=== PATIENT | female | born 1995 | race Caucasian/White ===

== ENCOUNTER 2020-04-20 13:44 | Outpatient (REF) | payer OTHER, SELFPAY | END 2020-04-20 13:45 | disposition home or self-care (01) | LOC: HO.LAB 13:44 | PROVIDERS: Visit Provider Internal Medicine | DX: Z20.828 Contact with and (suspected) exposure to other viral communicable diseases (principal) | CPT/HCPCS: C9803; U0003 ==

== ENCOUNTER 2021-02-27 14:56 | Outpatient (REF) | payer OTHER, SELFPAY ==
--- NOTE | ~2021-02-27 | XR_ITS ---
EXAMINATION: XR HAND, LEFT CLINICAL INFORMATION: Pain COMPARISON: None TECHNIQUE: PA, lateral, and oblique views of the left hand. FINDINGS: The bones and soft tissues are normal. No fracture. Alignment is anatomic. Joint spaces are maintained. No erosions or soft tissue calcifications. XR/XR hand LT min 3V IMPRESSION: Normal left hand.
== END 2021-02-27 14:57 | disposition home or self-care (01) ==
LOC: HO.HMGCX 14:56
PROVIDERS: PCP Internal Medicine; Visit Provider Internal Medicine
DX: Z13.89 Encounter for screening for other disorder (principal)
CPT/HCPCS: 73130

== ENCOUNTER 2021-03-02 13:53 | Outpatient (REF) | payer OTHER, SELFPAY ==
[2021-03-02 14:42] LABS: Hematocrit 37.1 % (37-47); Hemoglobin 11.7 g/dl (12.0-16.0); Mean Corpuscular HGB Conc 31.5 g/dl (31.0-35.0); Mean Corpuscular Hemoglobin 25.3 pg (27.0-33.0); Mean Corpuscular Volume 80.1 fL (80-98); Mean Platelet Volume 10.2 fL (9.4-12.3); Platelet Count 300 X10*3/uL (160-400); Red Blood Count 4.63 X10*6/uL (4.20-5.50); Red Cell Distribution Width 14.2 % (11.0-16.0); White Blood Count 10.3 X10*3/uL (4.8-10.8)
[2021-03-02 15:04] LABS: Alanine Aminotransferase 22 U/L (0-31); Albumin Level 4.6 g/dL (3.5-5.0); Alkaline Phosphatase 61 U/L (39-117); Anion Gap 13 (12-20); Aspartate Amino Transferase 18 U/L (5-31); Bilirubin Total 0.3 mg/dL (0.0-1.0); Blood Urea Nitrogen 8 mg/dL (9-16); Calcium 9.6 mg/dL (8.4-10.2); Carbon Dioxide 25 mmol/L (22-29); Chloride 106 mmol/L (96-108); Cholesterol 154 mg/dL; Estimated Glomerular Filt Rate > 60; Glucose Fasting 75 mg/dL (60-99); HDL Cholesterol 48 mg/dL; Iron 53 mcg/dL (30-160); LDL Cholesterol Calculated 85 mg/dl; Percent Iron Saturation 11 % (15-50); Potassium 3.8 mmol/L (3.3-5.1); Sodium 140 mmol/L (135-145); Total Iron Binding Capacity 493 mcg/dL (228-428); Total Protein 7.6 g/dL (6.5-8.0); Triglycerides 109 mg/dL; Unsaturated Iron Binding 440 ug/dL
[2021-03-02 15:25] LABS: TSH reflex Free T4 1.09 uIU/mL (0.32-4.0)
[2021-03-02 15:38] LABS: Appearance Urine HAZY; Color Urine YELLOW; Glucose Urine UA NEG (NEG); Leukocyte Esterase Urine NEG (NEG); Nitrite Urine NEG (NEG); Specific Gravity - Urine >= 1.030 (1.005-1.025); Urine Blood 3+ (NEG); Urine Ketones NEG (NEG); Urine Protein TRACE MG/DL (NEG-TRACE)
[2021-03-02 16:55] LABS: Bacteria Urine 3+ /LPF; RBC Urine 50-75 /HPF (0); Squamous Epithelial Cell Urine 2+ /LPF
== END 2021-03-02 13:54 | disposition home or self-care (01) ==
LOC: HO.LAB 13:53
PROVIDERS: PCP Internal Medicine; Visit Provider Internal Medicine
DX: Z00.00 Encounter for general adult medical examination without abnormal findings (principal)
CPT/HCPCS: 36415; 80053; 80061; 81001; 83540; 84443; 85027

== ENCOUNTER 2021-03-06 15:11 | Outpatient (REF) | payer OTHER, SELFPAY ==
[2021-03-07 16:31] LABS: CT PCR NOT DETECTED (Not Detect.); NG PCR NOT DETECTED (Not Detect.)
[2021-03-08 09:44] LABS: BV Int Neg Control Negative (Negative); BV Int Pos Control Positive (Positive)
== END 2021-03-06 15:12 | disposition home or self-care (01) ==
LOC: HO.LAB 15:11
PROVIDERS: PCP Internal Medicine; Visit Provider Advanced Practice Midwife
DX: Z01.419 Encounter for gynecological examination (general) (routine) without abnormal findings (principal); Z11.3 Encounter for screening for infections with a predominantly sexual mode of transmission; Z20.2 Contact with and (suspected) exposure to infections with a predominantly sexual mode of transmission; E66.01 Morbid (severe) obesity due to excess calories; L65.9 Nonscarring hair loss, unspecified
CPT/HCPCS: 87480; 87491; 87510; 87591; 87660; 88142

== ENCOUNTER 2021-03-10 13:02 | Outpatient (REF) | payer OTHER, SELFPAY ==
--- NOTE | ~2021-03-10 | US_ITS ---
EXAMINATION: US PELVIS CLINICAL INFORMATION: Check IUD position. COMPARISON: Several priors. Most recent of 12/16/18. TECHNIQUE: Ultrasound of the pelvis is performed using both transabdominal and transvaginal transducers along with Doppler. Transvaginal imaging is performed due to inadequate visualization transabdominally. FINDINGS: Uterus: The uterus is anteverted and measures 7.4 x 4.3 x 5.5 cm. The IUD is present in expected position within the endometrial canal. There is no thickening of the endometrium. The uterus is smooth in contour and has normal myometrial echogenicity. No visible fibroid. Adnexa: Both ovaries are visualized. There is normal color flow to the adnexa. There is no ovarian torsion. There is no pelvic ascites or fluid collection. Right ovary measures 2.9 x 1.5 x 1.8 cm. Left ovary measures 3.5 x 2.2 x 2.0 cm. US/US pelvic and transvaginal IMPRESSION: IUD in expected position in the endometrial canal. Otherwise unremarkable examination.
== END 2021-03-10 13:03 | disposition home or self-care (01) ==
LOC: HO.HMGCX 13:02
PROVIDERS: PCP Internal Medicine; Visit Provider Advanced Practice Midwife
DX: Z30.431 Encounter for routine checking of intrauterine contraceptive device (principal)
CPT/HCPCS: 76830; 76856

== ENCOUNTER → 2021-03-15 14:02 | Outpatient (BNVA) | payer OTHER, SELFPAY | PROVIDERS: PCP Internal Medicine; Visit Provider Orthopaedic Surgery | DX: M79.645 Pain in left finger(s) (principal); M65.312 Trigger thumb, left thumb | CPT/HCPCS: 20550; 99202; J1100 ==

== ENCOUNTER → 2021-03-30 15:02 | Outpatient (BNVA) | payer OTHER, SELFPAY | PROVIDERS: Visit Provider Advanced Practice Midwife ==

== ENCOUNTER 2021-05-07 16:31 | Emergency (ER) | payer OTHER, SELFPAY ==
--- NOTE | ~2021-05-07 | CT_ITS ---
EXAMINATION: CT ABDOMEN AND PELVIS WITH CONTRAST CLINICAL INFORMATION: Periumbilical pain COMPARISON: 12/09/2011 report TECHNIQUE: Multidetector volumetric images were obtained from the superior aspect of the liver through the pubic symphysis following administration 85 mL of Omnipaque 350 intravenous contrast. Sagittal and coronal reformatted images were obtained on the technologist's workstation. Oral contrast: No This CT examination was performed using dose optimization techniques as appropriate, variously including the following: *Automated exposure control *Adjustment of mA and/or kV according to patient size (this includes techniques or standardized protocols for targeted exams where dose is matched to indication/reason for exam; i.e. extremities or head) *Use of iterative reconstruction technique DLP: 812 mGy-cm FINDINGS: LUNG BASES: The visualized lung bases are unremarkable. LIVER, GALLBLADDER, AND BILIARY TREE: The liver demonstrates diffuse hypoattenuation suspicious for steatosis. No focal hepatic lesion or biliary ductal dilatation is present. The gallbladder is unremarkable with no evidence of radiopaque gallstones, gallbladder wall thickening, or obvious pericholecystic inflammatory changes. PANCREAS: Unremarkable. SPLEEN: Unremarkable. ADRENAL GLANDS: Unremarkable. KIDNEYS AND URETERS: The kidneys are normal in size, shape, and attenuation. No hydronephrosis, hydroureter, or obstructing calculi seen. No perinephric stranding. Subcentimeter hypodensity in the lower left kidney statistically favors a cyst. BLADDER: Unremarkable. GASTROINTESTINAL TRACT: Assessment for wall thickening in some segments of the colon is limited due to luminal collapse, though no significant pericolonic stranding is seen to strongly suggest a colitis. No evidence of bowel obstruction. The appendix is unremarkable. No free fluid or free air is seen. ABDOMINAL WALL: No significant hernia is appreciated. LYMPH NODES: Normal. VASCULAR: Unremarkable. PELVIC VISCERA: IUD is present in the uterus. OSSEOUS STRUCTURES: Unremarkable. CT/CT abdomen pelvis w con IMPRESSION: No acute findings identified in the abdomen/pelvis. Suboptimal assessment of the colon due to luminal collapse. Fleischner guidelines were followed.
[2021-05-07 19:26] VITALS: BP 137/87; PULSE 73; RESP 20; TEMP 36.9; O2SAT 99; BMI 95.7
[2021-05-07 21:04] LABS: COVID-19 Test Negative (Negative)
--- NOTE | 2021-05-07 21:50 | ED_ITS ---
HPI - Nausea/Vomiting/Diarrhea General Chief complaint: Nausea/Vomiting/Diarrhea Stated complaint: vomiting Time Seen by Provider: 05/07/21 21:11 Source: patient Mode of arrival: ambulatory History of Present Illness HPI Narrative: 26-year-old female without significant past medical history other than 2 prior C-sections presents with nausea and vomiting that started last night after having eaten chicken tenders and then had a ?strong [place] drink for my birthday? and began experiencing nausea and vomiting and now has periumbilical abdominal discomfort and has had associated nonbloody diarrhea. Patient has continued to have nausea, vomiting, diarrhea throughout the day and has been unable to keep anything down. She otherwise denies any fever, chills, urinary symptoms and denies any history of renal colic. Patient is just now completing her menstrual cycle and endorses having an IUD in place. Related Data Home Medications Medication Instructions Recorded Confirmed ferrous sulfate 325 mg (65 mg 325 mg PO DAILY 02/27/21 02/27/21 iron) tablet copper 380 square mm intrauterine INTRAUTERINE 03/06/21 device (ParaGard T 380A) Previous Rx's Medication Instructions Recorded omeprazole 20 mg capsule,delayed 20 mg PO DAILY 42 Days #42 cap 02/27/21 release ciprofloxacin HCl 500 mg tablet 500 mg PO Q12H 7 Days #14 tab 05/08/21 (Cipro) ondansetron HCl 4 mg tablet 4 mg PO Q8H PRN #10 tab 05/08/21 (Zofran) Allergies Allergy/AdvReac Type Severity Reaction Status Date / Time seafood Allergy Severe Anaphylaxis Verified 05/07/21 19:26 Review of Systems Review of Systems: Pertinent positives and negatives as stated in HPI 10 point review of systems is otherwise negative. [facility] Past Medical History Source: nursing notes reviewed Medical History Annual physical exam GERD (gastroesophageal reflux disease) IUD check up Kidney stones Pain of left thumb Surgical History History of section History of dilatation and curettage Family History Family History Father Diabetes mellitus Mother Asthma History of blood clots Maternal Grandfather No problems noted. Maternal Grandmother Breast cancer Paternal Grandfather Diabetes mellitus Paternal Grandmother No problems noted. Brother No problems noted. Brother No problems noted. Brother No problems noted. Brother No problems noted. Sister No problems noted. Sister No problems noted. Sister No problems noted. Sister No problems noted. Sister No problems noted. Sister No problems noted. Son No problems noted. Social History Social History Housing: House Patient Tobacco Use Status: Never used Tobacco e-Cigarette/Vaping Use: Never Used Advance Directives: No Advance Directives Information Provided: No Patient : No Current occupational status: unemployed Physical Exam Vital Signs: Vital Signs: Last Vital Signs Temp 98.5 F 05/07/21 19:26 Pulse 73 05/07/21 19:26 Resp 20 05/07/21 19:26 BP 137/87 05/07/21 19:26 Pulse Ox 99 05/07/21 19:26 Body Mass Index 95.7 VITAL SIGNS: Reviewed. GENERAL: Well developed, well nourished, in no acute distress. HEAD: Normocephalic/atraumatic EYES: PERRLA, EOMI OROPHARYNX: no oral lesions noted, posterior pharynx clear NECK: Supple, no adenopathy LUNGS: Normal breath sounds. No adventitious sounds or accessory muscle use. SpO2<99> CARDIOVASCULAR: Regular rate and rhythm without noted murmurs ABDOMEN: Soft, tenderness in periumbilical and left lower quadrant without rebound, non-distended with bowel sounds. SKIN: Inspection of the skin reveals no rashes NEUROLOGIC: Alert and oriented x 4. Course Course Course Narrative: 26-year-old female with history and clinical presentation possible for pancreatitis, gastroenteritis, and less likely felt to be UTI/ectopic/renal colic. Review of all investigations without acute findings leukocytosis likely combination of UTI and stress response due to multiple episodes of nausea and vomiting. Review of all investigations consistent with pyelonephritis, patient received initial antibiotics here in the emergency room and was noted to be able to tolerate oral intake prior to discharge. She was informed of all results. MDM - Nausea/Vomiting/Diarrhea Lab Data Result diagrams: 05/07/21 22:59 05/07/21 22:59 Labs: Lab Results 05/07/21 05/07/21 05/07/21 Range/Units 20:45 21:46 21:46 WBC (4.8-10.8) X10*3/uL RBC (4.20-5.50) X10*6/uL Hgb (12.0-16.0) g/dl Hct (37.0-47.0) % MCV (80.0-98.0) fL MCH (27.0-33.0) pg MCHC (31.0-35.0) g/dl RDW (11.0-16.0) % Plt Count (160-400) X10*3/uL MPV (9.4-12.3) fL Immature Gran % (Auto) (0.0-0.4) % Neut % (Auto) (45-73) % Lymph % (Auto) (20-40) % [place] % (Auto) (2-11) % Eos % (Auto) (0-4) % Baso % (Auto) (0-2) % Lymph # (Auto) (1.2-4.9) X10*3/uL [place] # (Auto) (0.1-1.2) X10*3/uL Eos # (Auto) (0.0-0.4) X10*3/uL Baso # (Auto) (0.0-0.2) X10*3/uL Abs Immat Gran (auto) (0.00-0.03) X10*3/uL Absolute Neuts (auto) (2.0-8.3) x10*3/uL Absolute Nucleated RBC (0.0-0.012) X10*3/uL Nucleated RBC % (auto) (0.0-0.2) /100WBC Smear Tech's Comments Sodium (135-145) mmol/L Potassium (3.3-5.1) mmol/L Chloride (96-108) mmol/L Carbon Dioxide (22-29) mmol/L Anion Gap (12-20) BUN (9-16) mg/dL Creatinine (0.5-1.4) mg/dL Estim Creat Clear Calc Estimated GFR Random Glucose (60-115) mg/dL Calcium (8.4-10.2) mg/dL Total Bilirubin (0.0-1.0) mg/dL AST (5-31) U/L ALT (0-31) U/L Alkaline Phosphatase (39-117) U/L Total Protein (6.5-8.0) g/dL Albumin (3.5-5.0) g/dL Lipase (8-78) U/L Urine Color YELLOW Urine Appearance CLEAR Urine pH 6.5 (5.0-8.0) Ur Specific [place] 1.025 (1.005-1.025) Urine Protein 2+ H (NEG-TRACE) MG/DL Urine Glucose (UA) NEG (NEG) MG/DL Urine Ketones 40 (NEG) MG/DL Urine Blood 1+ H (NEG) Urine Nitrite POS H (NEG) Ur Leukocyte Esterase NEG (NEG) Urine RBC 5-9 H (0) /HPF Urine WBC 1-4 (0-4) /HPF Ur Squamous Epith Cells 1+ /LPF Urine Bacteria 3+ /LPF Urine Test NEGATIVE (NEGATIVE) COVID-19 ([facility]) Negative (Negative) COVID-19 Clin Com See Note 05/07/21 05/07/21 Range/Units 22:59 22:59 WBC 15.6 H (4.8-10.8) X10*3/uL RBC 4.74 (4.20-5.50) X10*6/uL Hgb 12.1 (12.0-16.0) g/dl Hct 37.2 (37.0-47.0) % MCV 78.5 L (80.0-98.0) fL MCH 25.5 L (27.0-33.0) pg MCHC 32.5 (31.0-35.0) g/dl RDW 14.6 (11.0-16.0) % Plt Count 301 (160-400) X10*3/uL MPV 10.0 (9.4-12.3) fL Immature Gran % (Auto) 0.4 (0.0-0.4) % Neut % (Auto) 91.4 H (45-73) % Lymph % (Auto) 5.5 L (20-40) % [place] % (Auto) 2.6 (2-11) % Eos % (Auto) 0.0 (0-4) % Baso % (Auto) 0.1 (0-2) % Lymph # (Auto) 0.9 L (1.2-4.9) X10*3/uL [place] # (Auto) 0.4 (0.1-1.2) X10*3/uL Eos # (Auto) 0.0 (0.0-0.4) X10*3/uL Baso # (Auto) 0.0 (0.0-0.2) X10*3/uL Abs Immat Gran (auto) 0.07 H (0.00-0.03) X10*3/uL Absolute Neuts (auto) 14.2 H (2.0-8.3) x10*3/uL Absolute Nucleated RBC 0.000 (0.0-0.012) X10*3/uL Nucleated RBC % (auto) 0.0 (0.0-0.2) /100WBC Smear Tech's Comments VERIFIED Sodium 140 (135-145) mmol/L Potassium 4.0 (3.3-5.1) mmol/L Chloride 104 (96-108) mmol/L Carbon Dioxide 19 L (22-29) mmol/L Anion Gap 21 H (12-20) BUN 11 (9-16) mg/dL Creatinine 0.72 (0.5-1.4) mg/dL Estim Creat Clear Calc 223.6 Estimated GFR > 60 Random Glucose 113 (60-115) mg/dL Calcium 10.0 (8.4-10.2) mg/dL Total Bilirubin 0.4 (0.0-1.0) mg/dL AST 25 (5-31) U/L ALT 31 (0-31) U/L Alkaline Phosphatase 59 (39-117) U/L Total Protein 8.4 H (6.5-8.0) g/dL Albumin 4.8 (3.5-5.0) g/dL Lipase 8 (8-78) U/L Urine Color Urine Appearance Urine pH (5.0-8.0) Ur Specific [place] (1.005-1.025) Urine Protein (NEG-TRACE) MG/DL Urine Glucose (UA) (NEG) MG/DL Urine Ketones (NEG) MG/DL Urine Blood (NEG) Urine Nitrite (NEG) Ur Leukocyte Esterase (NEG) Urine RBC (0) /HPF Urine WBC (0-4) /HPF Ur Squamous Epith Cells /LPF Urine Bacteria /LPF Urine Test (NEGATIVE) COVID-19 ([facility]) (Negative) COVID-19 Clin Com Discharge Plan Discharge Clinical Impression: Pyelonephritis, Gastroenteritis Patient Disposition: Home, Self-Care Instructions: Dehydration (ED), Gastroenteritis (ED), Kidney Infection (ED) Additional Instructions: 1. Increase fluid hydration, especially with water. 2. Complete the entire course of antibiotics. 3. Follow-up with your primary care provider next 2-3 days for re-evaluation further outpatient management. Return to the ER for acute worsening of symptoms. Prescriptions: New ciprofloxacin HCl [Cipro] 500 mg tablet 500 mg PO Q12H 7 Days Qty: 14 RF: 0 ondansetron HCl [Zofran] 4 mg tablet 4 mg PO Q8H PRN (Reason: nausea and vomiting) Qty: 10 RF: 0 No Action ferrous sulfate 325 mg (65 mg iron) tablet 325 mg PO DAILY RF: 0 omeprazole 20 mg capsule,delayed release(DR/EC) 20 mg PO DAILY 42 Days Qty: 42 RF: 0 ParaGard T 380A 380 square mm intrauterine device intrauterine RF: 0 Referrals: Radha Dobbs MD [Primary Care Provider] - 2 days
[2021-05-07 22:10] LABS: Appearance Urine CLEAR; Color Urine YELLOW; Glucose Urine UA NEG (NEG); Leukocyte Esterase Urine NEG (NEG); Nitrite Urine POS (NEG); PH 6.5 (5.0-8.0); Specific Gravity - Urine 1.025 (1.005-1.025); UACC Culture Trigger YES; Urine Blood 1+ (NEG); Urine Ketones 40 MG/DL (NEG); Urine Protein 2+ MG/DL (NEG-TRACE)
[2021-05-07 22:16] LABS: UPreg QC Valid YES; Urine Pregnancy NEGATIVE (NEGATIVE)
[2021-05-07 22:37] LABS: Bacteria Urine 3+ /LPF; Squamous Epithelial Cell Urine 1+ /LPF
[2021-05-07 23:04] LABS: Basophils Percent Auto 0.1 % (0-2); Hematocrit 37.2 % (37.0-47.0); Hemoglobin 12.1 g/dl (12.0-16.0); Imm Gran Abs Auto 0.07 X10*3/uL (0.00-0.03); Imm Gran Pct Auto 0.4 % (0.0-0.4); Lymphocytes Absolute Auto 0.9 X10*3/uL (1.2-4.9); Lymphocytes Percent Auto 5.5 % (20-40); MANUAL DIFF FLAG SCAN; Mean Corpuscular HGB Conc 32.5 g/dl (31.0-35.0); Mean Corpuscular Hemoglobin 25.5 pg (27.0-33.0); Mean Corpuscular Volume 78.5 fL (80.0-98.0); Monocytes Absolute Auto 0.4 X10*3/uL (0.1-1.2); Monocytes Percent Auto 2.6 % (2-11); Neutrophils Absolute Auto 14.2 x10*3/uL (2.0-8.3); Neutrophils Percent Auto 91.4 % (45-73); Platelet Count 301 X10*3/uL (160-400); Red Blood Count 4.74 X10*6/uL (4.20-5.50); Red Cell Distribution Width 14.6 % (11.0-16.0); SCAN SMEAR FLAG 1; White Blood Count 15.6 X10*3/uL (4.8-10.8)
[2021-05-07] MEDS: ondansetron HCL 4 MG/2 ML VIAL IVPUSH (23:12)
[2021-05-07] MEDS: 0.9 % Sodium Chloride 2,000 ML 999 ML IV (23:13)
[2021-05-07 23:21] LABS: Alanine Aminotransferase 31 U/L (0-31); Albumin Level 4.8 g/dL (3.5-5.0); Alkaline Phosphatase 59 U/L (39-117); Anion Gap 21 (12-20); Aspartate Amino Transferase 25 U/L (5-31); Bilirubin Total 0.4 mg/dL (0.0-1.0); Blood Urea Nitrogen 11 mg/dL (9-16); Carbon Dioxide 19 mmol/L (22-29); Chloride 104 mmol/L (96-108); Creatinine Clr Calc Pharmacy 223.6; Estimated Glomerular Filt Rate > 60; Glucose Random 113 mg/dL (60-115); Lipase 8 U/L (8-78); Sodium 140 mmol/L (135-145); Total Protein 8.4 g/dL (6.5-8.0)
[2021-05-07 23:31] LABS: SLIDE REVIEW VERIFIED
[2021-05-08] MEDS: cefTRIAXone sodium 1 GM in 0.9 % Sodium Chloride 50 ML IV (00:09)
[2021-05-08] MEDS: iohexoL 350 MG/ML 100 ML INFUS..BTL 85 ML IV (01:20)
[2021-05-08 02:53] VITALS: BP 124/84; PULSE 76; RESP 18; TEMP 37; O2SAT 98
== END 2021-05-08 02:54 | disposition home or self-care (01) ==
PROVIDERS: Emergency Provider Student in an Organized Health Care Education/Training Program; PCP Internal Medicine
DX: N12 Tubulo-interstitial nephritis, not specified as acute or chronic (principal); K52.9 Noninfective gastroenteritis and colitis, unspecified; Z20.822 Contact with and (suspected) exposure to COVID-19; R11.2 Nausea with vomiting, unspecified
CPT/HCPCS: 36415; 74177; 80053; 81001; 81003; 81025; 83690; 85025; 87086; 87088; 87186; 87635; 96361; 96365; 96375; 99284; J0696; J2405; Q9967

== ENCOUNTER 2022-04-11 11:53 | Outpatient (REF) | payer OTHER, SELFPAY ==
[2022-04-11 12:20] LABS: Binax Internal Control QC Valid; Binax Now Covid-19 Ag Negative (Negative)
== END 2022-04-11 11:54 | disposition home or self-care (01) ==
LOC: HO.HMGCLDS 11:53
PROVIDERS: PCP Internal Medicine; Visit Provider Internal Medicine
DX: Z20.822 Contact with and (suspected) exposure to COVID-19 (principal)
CPT/HCPCS: 87811; C9803

== ENCOUNTER 2022-05-14 10:01 | Outpatient (REF) | payer OTHER, SELFPAY ==
[2022-05-14 14:16] LABS: CT PCR NOT DETECTED (Not Detect.); NG PCR NOT DETECTED (Not Detect.)
[2022-05-15 09:27] LABS: BV Int Neg Control Negative (Negative); BV Int Pos Control Positive (Positive)
== END 2022-05-14 10:02 | disposition home or self-care (01) ==
LOC: HO.LNP 10:01
PROVIDERS: PCP Internal Medicine; Visit Provider Advanced Practice Midwife
DX: Z30.431 Encounter for routine checking of intrauterine contraceptive device (principal); Z32.02 Encounter for pregnancy test, result negative; Z20.2 Contact with and (suspected) exposure to infections with a predominantly sexual mode of transmission; R10.2 Pelvic and perineal pain; L65.9 Nonscarring hair loss, unspecified; N92.4 Excessive bleeding in the premenopausal period; E66.9 Obesity, unspecified
CPT/HCPCS: 76830; 76856; 81025; 87480; 87491; 87510; 87591; 87660; 99212

== ENCOUNTER 2022-05-14 11:30 | Outpatient (REF) | payer OTHER, SELFPAY ==
--- NOTE | ~2022-05-14 | US_ITS ---
EXAMINATION: US PELVIS CLINICAL INFORMATION: IUD. COMPARISON: None TECHNIQUE: Ultrasound of the pelvis is performed using both transabdominal and transvaginal transducers along with Doppler. Transvaginal imaging is performed due to inadequate visualization transabdominally. FINDINGS: Uterus: The uterus is anteverted and measures 9.2 x 4.4 x 5.3 cm. No myometrial abnormality. An IUD is seen within the endometrial canal extending to the level the fundus without surrounding abnormality. This obscures a majority of the endometrium without overt abnormality. The cervix is closed without abnormality. Mild free fluid in the cul-de-sac. Right ovary measures 3.5 x 2.2 x 2.2 cm. Doppler showed no abnormal vascular flow. Left ovary measures 2.9 x 1.9 x 1.7 cm. Doppler showed no abnormal vascular flow. US/US pelvic and transvaginal IMPRESSION: 1. IUD appears in good position without significant abnormality or change. No other significant abnormality.
== END 2022-05-14 11:31 | disposition home or self-care (01) ==
LOC: HO.US 11:30
PROVIDERS: PCP Internal Medicine; Visit Provider Advanced Practice Midwife
DX: Z13.89 Encounter for screening for other disorder (principal)
CPT/HCPCS: 76830; 76856

== ENCOUNTER → 2022-05-21 11:39 | Outpatient (BNVA) | payer OTHER, SELFPAY | PROVIDERS: PCP Internal Medicine; Visit Provider Advanced Practice Midwife | DX: R10.2 Pelvic and perineal pain (principal); R19.8 Other specified symptoms and signs involving the digestive system and abdomen; E66.01 Morbid (severe) obesity due to excess calories; Z68.41 Body mass index [BMI] 40.0-44.9, adult; Z87.42 Personal history of other diseases of the female genital tract; Z97.5 Presence of (intrauterine) contraceptive device | CPT/HCPCS: 99212 ==

== ENCOUNTER 2022-08-06 11:19 | Outpatient (REF) | payer OTHER, SELFPAY ==
[2022-08-06 12:10] LABS: MANUAL DIFF FLAG NO
[2022-08-06 12:53] LABS: Basophils Percent Auto 0.5 % (0-2); Eosinophils Absolute Auto 0.1 X10*3/uL (0.0-0.4); Eosinophils Percent Auto 1.4 % (0-4); Hematocrit 38.1 % (37.0-47.0); Hemoglobin 12.3 g/dl (12.0-16.0); Imm Gran Abs Auto 0.04 X10*3/uL (0.00-0.03); Imm Gran Pct Auto 0.5 % (0.0-0.4); Lymphocytes Absolute Auto 2.3 X10*3/uL (1.2-4.9); Lymphocytes Percent Auto 26.9 % (20-40); Mean Corpuscular HGB Conc 32.3 g/dl (31.0-35.0); Mean Corpuscular Hemoglobin 26.2 pg (27.0-33.0); Mean Corpuscular Volume 81.1 fL (80.0-98.0); Mean Platelet Volume 10.9 fL (9.4-12.3); Monocytes Absolute Auto 0.5 X10*3/uL (0.1-1.2); Monocytes Percent Auto 5.5 % (2-11); Neutrophils Absolute Auto 5.5 x10*3/uL (2.0-8.3); Neutrophils Percent Auto 65.2 % (45-73); Platelet Count 286 X10*3/uL (160-400); Red Cell Distribution Width 14.4 % (11.0-16.0); White Blood Count 8.4 X10*3/uL (4.8-10.8)
[2022-08-06 13:26] LABS: Alanine Aminotransferase 21 U/L (0-31); Albumin Level 4.6 g/dL (3.5-5.0); Alkaline Phosphatase 54 U/L (39-117); Anion Gap 14 (12-20); Aspartate Amino Transferase 17 U/L (5-31); Bilirubin Total 0.4 mg/dL (0.0-1.0); Blood Urea Nitrogen 10 mg/dL (9-16); Calcium 9.9 mg/dL (8.4-10.2); Carbon Dioxide 27 mmol/L (22-29); Chloride 104 mmol/L (96-108); Estimated Glomerular Filt Rate > 60; Glucose Random 81 mg/dL (60-115); Potassium 4.7 mmol/L (3.3-5.1); Sodium 140 mmol/L (135-145); Total Protein 7.6 g/dL (6.5-8.0)
[2022-08-06 13:49] LABS: Thyroid Stimulating Hormone 0.48 uIU/mL (0.32-4.0); Vitamin B12 258 pg/mL (200-900)
== END 2022-08-06 11:20 | disposition home or self-care (01) ==
LOC: HO.LAB 11:19
PROVIDERS: PCP Internal Medicine; Visit Provider Physician Assistant
DX: R19.8 Other specified symptoms and signs involving the digestive system and abdomen (principal); K59.09 Other constipation; K58.1 Irritable bowel syndrome with constipation; Z79.899 Other long term (current) drug therapy
CPT/HCPCS: 36415; 80053; 82607; 82746; 84443; 85025; 99202

== ENCOUNTER 2023-04-24 12:52 | Outpatient (AMB) | payer OTHER, SELFPAY ==
--- NOTE | 2023-04-24 12:55 | A.OFFPC_ITS ---
Vital Signs 04/24/23 12:57 Height 5 ft 1 in Weight 216 lb BMI 40.8 BP 120/70 Blood Pressure Location Rt brachial Position Sitting Pulse 80 Pulse Source Pulse Oximeter Pulse Oximetry (%) 98 Oxygen Delivery Method Room Air Intake Visit Reasons: Recurring cough, blood in phlegm, work note Intake Note: Patient here for vomiting, cough, sore throat, diarrhea, headaches and has had fevers since Saturday. pt states she was fine on Saturday all day and then fell asleep and woke up vomiting. Allergies seafood Allergy (Severe, Verified 04/24/23 13:00) Anaphylaxis nitrofurantoin Adverse Reaction (Intermediate, Verified 04/24/23 13:00) Nausea and Vomiting Tobacco use date assessed: 04/24/23 Dental Screening Dental Screen Date: 04/24/23 HPI Recurring cough, blood in phlegm, work note HPI Details Pt c/o sore throat, dry cough, fever, diarrhea, body aches for 4 days. She has been able to keep fluids and taking [id number] cold medications [facility] Medical History Diarrhea GERD (gastroesophageal reflux disease) IUD check up Pain of left thumb Annual physical exam Kidney stones Surgical History History of dilatation and curettage History of section Family History Father Diabetes mellitus Mother Asthma History of blood clots Mental health disorder Maternal Grandfather No problems noted. Maternal Grandmother Breast cancer Mental health disorder Paternal Grandfather Diabetes mellitus Paternal Grandmother No problems noted. Brother No problems noted. Brother No problems noted. Brother No problems noted. Brother No problems noted. Sister No problems noted. Sister No problems noted. Sister No problems noted. Sister No problems noted. Sister No problems noted. Sister No problems noted. Son No problems noted. Social History Housing: House Patient Tobacco Use Status: Never used Tobacco e-Cigarette/Vaping Use: Never Used Current occupational status: unemployed Cognitive needs: No Hearing needs: No Vision needs: Yes Female Reproductive History Menstrual Age of Menarche: 8 Questionnaire Thrive Questionnaire Date Thrive assessed: 02/27/21 MICHAEL-7 AMB Questionnaire MICHAEL-7 Date MICHAEL - 7 assessed: 05/30/21 Source: Developed by Drs. Emigdio Traylor, Briana Campos, Kwan Flood and colleagues, with an educational butch from [employer]. Review of Systems Const All systems reviewed & are unremarkable except as noted in HPI and below Eyes Reports no additional complaints ENT Reports no additional complaints Card Reports no additional complaints Resp Reports no additional complaints GI Reports no additional complaints Physical exam (Primary Care) Vital Signs: Last Vital Signs Pulse 80 04/24/23 12:57 BP 120/70 04/24/23 12:57 Pulse Ox 98 04/24/23 12:57 Oxygen Delivery Method Room Air 04/24/23 12:57 BMI result Body Mass Index 40.8 Tobacco/Smoking Status: Tobacco use Status Tobacco use date assessed 04/24/23 04/24/23 13:03 Patient Tobacco Use Status Never used Tobacco 04/24/23 13:03 e-Cigarette/Vaping Use Never Used 04/24/23 13:03 Thrive Assessment: Date of Thrive Assessment Date Thrive assessed 02/27/21 04/24/23 13:03 Const General: no acute distress HENMT Ears: TM's normal bilaterally General nose exam: Abnormal mucous membranes and turbinates present erythematous Face and sinus: Yes sinuses nontender Throat: Yes posterior oropharynx abnormal (erythema, ) and Yes postnasal drainag e Eyes General: appearance normal, both eyes and all related structures Neck Neck: Yes supple Resp Effort & Inspection: normal respiratory effort Auscultation: clear to auscultation bilaterally Cardio Rhythm: regular rhythm Heart sounds: S1 normal heart sound present and S2 normal heart sound present GI Inspection: Yes normal to inspection Palpation (GI): Soft to palpation Auscultation: normal bowel sounds Results AMB Rapid Strep AMB Rapid Strep Negative Last Edit by RYAN Roach on 04/24/23 13:55 Results Reviewed Results Reviewed: Laboratory Last Values Strep Scn Rapid Clinic Negative 04/24/23 13:53 Assessment and Plan Assessment & Plan (1) Upper respiratory tract infection: Code(s): J06.9 - Acute upper respiratory infection, unspecified Plan: SUPPORTIVE CARE DISCUSSED WITH THE PATIENT Orders: Orders AMB Rapid Strep Screen Today Z13.9 - Encounter for screening, unspecified SARS-CoV2/FLU/RSV Today R09.89 - Other specified symptoms and signs involving the circulatory and respiratory systems Coding Level of Care Code Est Pt Level 3 (09766) Diagnoses Upper respiratory tract infection J06.9
[2023-04-24 12:57] VITALS: BP 120/70; PULSE 80; O2SAT 98; BMI 40.8
== END 2023-04-24 14:22 | disposition home or self-care (01) ==
LOC: HO.HMGC 12:52
PROVIDERS: PCP Internal Medicine; Visit Provider Internal Medicine
DX: J06.9 Acute upper respiratory infection, unspecified (principal); J02.9 Acute pharyngitis, unspecified
CPT/HCPCS: 87880; 99213

== ENCOUNTER 2023-04-24 13:53 | Outpatient (REF) | payer OTHER, SELFPAY ==
[2023-04-24 17:14] LABS: Influenza A PCR NEGATIVE (Negative); Influenza B PCR NEGATIVE (Negative); Resp Syncy Virus RNA Qual PCR NEGATIVE (Negative); SARS COV2 PCR INHOUSE POSITIVE (Negative)
== END 2023-04-24 13:54 | disposition home or self-care (01) ==
LOC: HO.LNP 13:53
PROVIDERS: Visit Provider Internal Medicine
DX: R09.89 Other specified symptoms and signs involving the circulatory and respiratory systems (principal); Z11.52 Encounter for screening for COVID-19
CPT/HCPCS: 0241U

== ENCOUNTER 2023-05-15 13:42 | Outpatient (AMB) | payer OTHER, SELFPAY ==
[2023-05-15 14:03] VITALS: BP 110/68; BMI 41.9
--- NOTE | 2023-05-15 14:03 | MHC.OFFVIS ---
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: No Information Interpreted: clinical only Waxer: Waxer Present Allergies seafood Allergy (Severe, Verified 05/15/23 14:04) Anaphylaxis nitrofurantoin Adverse Reaction (Intermediate, Verified 05/15/23 14:04) Nausea and Vomiting Medication List - Last Reconciled 05/15/23 by Lin Siegel CNM bisacodyl (Dulcolax (bisacodyl)) 10 mg DE DAILY PRN copper (ParaGard T 380A) intrauterine docusate sodium (Colace) 200 mg (2 x 100 mg) PO BEDTIME epinephrine 0.3 mg IM Q4H PRN ibuprofen 800 mg PO TID methylcellulose (laxative) (Citrucel) 500 mg PO TID ondansetron HCl (Zofran) 4 mg PO Q8H PRN polyethylene glycol 3350 (Miralax) 17 grams PO DAILY Is last menstrual period known: Yes Last menstrual period: 05/15/23 Patient : No HPI IUD Removal HPI Details Patient states she is here for a ParaGard removal and replacement. She has had the ParaGard because she was advised to not have have anything with any hormones and it because she was having alopecia and she was told to avoid hormones. Her periods have gotten heavier and they are so heavy that if she has her. Heavy and needs to cough or sneeze, she runs to the bathroom and frayed that she is going to leak. She says she is anemic and takes iron twice a day. She says she was referred to dermatology for the alopecia but she does not remember what kind she has and she was given a paced that she mixes up that she was paste to put on her scalp but it did not do anything but she does not know what it is. She says she called last month and was told to call back when she had her. So she could come in and get it replaced but there was no discussion about signing paperwork had of time to order the ParaGard. [facility] Medical History Diarrhea GERD (gastroesophageal reflux disease) IUD check up Pain of left thumb Annual physical exam Kidney stones Surgical History History of dilatation and curettage History of section Family History Father Diabetes mellitus Mother Asthma History of blood clots Mental health disorder Maternal Grandfather No problems noted. Maternal Grandmother Breast cancer Mental health disorder Paternal Grandfather Diabetes mellitus Paternal Grandmother No problems noted. Brother No problems noted. Brother No problems noted. Brother No problems noted. Brother No problems noted. Sister No problems noted. Sister No problems noted. Sister No problems noted. Sister No problems noted. Sister No problems noted. Sister No problems noted. Son No problems noted. Social History Housing: House Patient Tobacco Use Status: Never used Tobacco e-Cigarette/Vaping Use: Never Used Current occupational status: unemployed Cognitive needs: No Hearing needs: No Vision needs: Yes Female Reproductive History Menstrual Age of Menarche: 8 Date of last menstrual period: 05/15/23 control method: copper IUCD Physical Exam Vital Signs: Last Vital Signs BP 110/68 05/15/23 14:03 BMI result Body Mass Index 41.9 Results AMB Test Urine AMB Test Urine Negative Last Edit by Jaswinder Burden CMA on 05/15/23 14:11 Assessment & Plan Assessment & Plan (1) Alopecia: Code(s): L65.9 - Nonscarring hair loss, unspecified (2) IUD (intrauterine device) in place: Code(s): Z97.5 - Presence of (intrauterine) contraceptive device (3) control counseling: Code(s): Z30.09 - Encounter for other general counseling and advice on contraception (4) Menorrhagia due to intrauterine device (IUD): Code(s): T83.89XA - Other specified complication of genitourinary prosthetic devices, implants and grafts, initial encounter; N92.0 - Excessive and frequent menstruation with regular cycle Plan Patient states she is here for a ParaGard removal and replacement. She has had the ParaGard because she was advised to not have have anything with any hormones and it because she was having alopecia and she was told to avoid hormones. Her periods have gotten heavier and they are so heavy that if she has her. Heavy and needs to cough or sneeze, she runs to the bathroom and frayed that she is going to leak. She says she is anemic and takes iron twice a day. She says she was referred to dermatology for the alopecia but she does not remember what kind she has and she was given a paced that she mixes up that she was paste to put on her scalp but it did not do anything but she does not know what it is. She says she called last month and was told to call back when she had her. So she could come in and get it replaced but there was no discussion about signing paperwork had of time to order the ParaGard. Discussed that it was unclear how this appointment got made in her however this provides an opportunity to revisit her decision to use the ParaGard IUD because she is having such heavy periods and says she is anemic and is tired all the time and needs to take iron twice a day that this might be a very good opportunity to reconsider and consider a Mirena IUD which may help lighten her periods she is still on easy about the idea of hormones and I discussed side effects of the Mirena and also alopecia and that it would be good for her to find out exactly what kind she has and that it also would be good to check her thyroid gland as well. She has an appointment with Dr. Dobbs this Saturday and she says she would like to discuss it with her at that visit and she will make her decision after that if she wants to switch to the Mirena IU S then she could call with her next period and we will take out the ParaGard and put in a Mirena IU S which we stock in the pharmacy and it would be able to be done in that way if she decides to stick with the ParaGard after discussing this with her primary doctor then she would have to sign paperwork ahead of time so that it can be ordered. I gave her a brochure about the Mirena. Orders: Orders AMB HCG Urine Test Today Z32.02 - Encounter for test, result negative Coding Level of Care Code Est Pt Level 3 (55114) Diagnoses Alopecia L65.9 IUD (intrauterine device) in place Z97.5 control counseling Z30.09 Menorrhagia due to intrauterine device (IUD) T83.89XA; N92.0
== END 2023-05-15 14:34 | disposition home or self-care (01) ==
LOC: HO.HWS 13:42
PROVIDERS: PCP Internal Medicine; Visit Provider Advanced Practice Midwife
DX: T83.89XA Other specified complication of genitourinary prosthetic devices, implants and grafts, initial encounter (principal); N92.0 Excessive and frequent menstruation with regular cycle; L65.9 Nonscarring hair loss, unspecified; Z32.02 Encounter for pregnancy test, result negative
CPT/HCPCS: 99213

== ENCOUNTER → 2023-05-15 13:42 | Outpatient (BNVA) | payer OTHER, SELFPAY | PROVIDERS: PCP Internal Medicine; Visit Provider Advanced Practice Midwife | DX: T83.89XA Other specified complication of genitourinary prosthetic devices, implants and grafts, initial encounter (principal); N92.0 Excessive and frequent menstruation with regular cycle; L65.9 Nonscarring hair loss, unspecified; Z30.09 Encounter for other general counseling and advice on contraception; Z97.5 Presence of (intrauterine) contraceptive device | CPT/HCPCS: 81025; 99212 ==

== ENCOUNTER 2023-09-14 14:16 | Emergency (ER) | payer OTHER, SELFPAY ==
--- NOTE | ~2023-09-14 | XR_ITS ---
EXAMINATION: XR FINGER, RIGHT CLINICAL INFORMATION: Trauma to the distal right third finger. Sliced tip of the right third finger. COMPARISON: None available. TECHNIQUE: PA view of the right hand and oblique and lateral views of the right hand third finger are obtained. FINDINGS: There is no evidence of acute fracture or dislocation in the right hand third finger. Soft tissue injury at the distal end of the third finger is noted without evidence of radiopaque foreign body or obvious soft tissue air. A metallic ring is noted projecting over the third proximal phalanx. Remainder of the osseous structures are unremarkable without evidence of acute fracture or focal erosion. XR/XR finger RT min 2V IMPRESSION: No evidence of acute fracture or dislocation in the right hand third finger. No evidence of soft tissue air or radiopaque foreign body.
[2023-09-14 14:47] VITALS: BP 147/94; PULSE 88; RESP 20; TEMP 36.2; O2SAT 100; BMI 40.4
--- NOTE | 2023-09-14 14:47 | ED_ITS ---
HPI - Extremity Injury (Upper) General Chief Complaint: Wound/Laceration Stated Complaint: Finger injury Time Seen by Provider: 09/14/23 16:34 Source: patient Mode of arrival: ambulatory Limitations: no limitations History of Present Illness HPI narrative: 28-year-old female presents with laceration to the distal aspect of right middle finger, patient cut herself on a cheese Grater this happened prior to arrival. Patient is not up-to-date on tetanus shot. Denies numbness, tingling, fevers, chills. Related Data Home Medications ?Medication ?Instructions ?Recorded ?Confirmed copper 380 square mm intrauterine intrauterine 03/06/21 05/15/23 device (ParaGard T 380A) ibuprofen 800 mg tablet 800 mg PO TID 05/30/21 05/15/23 epinephrine 0.3 mg/0.3 mL 0.3 mg IM Q4H PRN 04/24/23 05/15/23 injection, auto-injector Previous Rx's ?Medication ?Instructions ?Recorded ondansetron HCl 4 mg tablet 4 mg PO Q8H PRN nausea and 05/08/21 (Zofran) vomiting #10 tabs bisacodyl 10 mg rectal suppository 10 mg MO DAILY PRN constipation 08/06/22 (Dulcolax (bisacodyl)) #20 ea docusate sodium 100 mg capsule 200 mg (2 x 100 mg) PO BEDTIME #60 08/06/22 (Colace) caps methylcellulose (laxative) 500 mg 500 mg PO TID #90 tabs 08/06/22 tablet (Citrucel) polyethylene glycol 3350 17 17 g PO DAILY #510 grams 08/06/22 gram/dose oral powder (Miralax) Allergies Allergy/AdvReac Type Severity Reaction Status Date / Time seafood Allergy Severe Anaphylaxis Verified 09/14/23 14:48 nitrofurantoin AdvReac Intermediate Nausea and Verified 09/14/23 14:48 Vomiting Review of Systems Review of Systems: Yes all other systems are reviewed and are negative PMFSH Past Medical History Attestation statement: The following information was validated with the patient. Source: old records reviewed and nursing notes reviewed Medical History Diarrhea GERD (gastroesophageal reflux disease) IUD check up Pain of left thumb Annual physical exam Kidney stones Surgical History History of dilatation and curettage History of section Family History Family History Father Diabetes mellitus Mother Asthma History of blood clots Mental health disorder Maternal Grandfather No problems noted. Maternal Grandmother Breast cancer Mental health disorder Paternal Grandfather Diabetes mellitus Paternal Grandmother No problems noted. Brother No problems noted. Brother No problems noted. Brother No problems noted. Brother No problems noted. Sister No problems noted. Sister No problems noted. Sister No problems noted. Sister No problems noted. Sister No problems noted. Sister No problems noted. Son No problems noted. Social History Social History Housing: House Patient Tobacco Use Status: Never used Tobacco e-Cigarette/Vaping Use: Never Used Advance Directives: No Advance Directives Information Provided: Yes Current occupational status: unemployed Cognitive needs: No Hearing needs: No Vision needs: Yes Physical Exam Vital Signs: Vital Signs: Last Vital Signs Temp 97.1 F 09/14/23 14:47 Pulse 88 09/14/23 14:47 Resp 20 09/14/23 14:47 BP 147/94 H 09/14/23 14:47 Pulse Ox 100 09/14/23 14:47 O2 Del Method Room Air 09/14/23 14:47 BMI result Body Mass Index 40.4 vss Appearance: Alert.? Oriented X3.? No acute distress.? Head: Normocephalic, atraumatic, no step-offs or deformities Eyes: Pupils equal, round and reactive to light.? ENT: Pharynx normal.? Neck: Normal inspection.? Neck supple.? CVS:? Pulses normal.? Respiratory: No respiratory distress. Abdomen: Soft and nontender.? Skin: Skin warm and dry.? Normal skin color.? Normal skin turgor.? Extremities: No lower extremity edema.? No calf ttp. 5/5 strength to bilateral upper and lower extremities + laceration to the distal aspect of right middle finger fat pad 1 cm superficial. 2+ radial pulses. Full range of motion to all fingers. Less than 2nd capillary refill to bilateral upper extremity digits. Neuro: Oriented X 3.? No motor deficit.? No sensory deficit. CN 2-12 intact Course Course Course Narrative: 28 y/o female presents for lacteratoin to L 3rd digit at 11:35am with modeling and simulation analyst. She says that the senior officer who wrapped the finger says it was under the finger nail, unknown if to the bone. No recent tetanus in 5 years. smt technician was dirty. Finger is currently wrapped with bleeding controlled, will wait until seen to evaluated if stitches are needed. Plan: finger x ray, tetanus Medical Decision Making Medical Decision Making MDM Narrative: 28-year-old female presents with laceration to right middle finger, happened prior to arrival Physical exam No lower extremity edema.? No calf ttp. 5/5 strength to bilateral upper and lower extremities + laceration to the distal aspect of right middle finger fat pad 1 cm superficial. 2+ radial pulses. Full range of motion to all fingers. Less than 2nd capillary refill to bilateral upper extremity digits. History and physical exam concerning for simple laceration. Unlikely fracture, dislocation, neurovascular compromise or acute threat to limb. Plan cleaned extensivly and Dermabond. Educated patient on diagnosis and treatment plan, answered all question, patient verbalizes understanding. At this time patient will be discharged home, advised to return with new or worsening symptoms. Educated on worrisome signs and symptoms and when to return. At this time I feel comfortable discharge home. Differential Diagnosis Differential Diagnoses: The differential diagnosis associated with the presentation includes History and physical exam concerning for simple laceration. Unlikely fracture, dislocation, neurovascular compromise or acute threat to limb. Admission/Observation Consideration of admission/observation: Escalation of care including admission/observation considered unlikely Independent Interpretation I performed an independent interpretation of an: Plain X-Ray (XR/XR finger RT min 2V IMPRESSION: No evidence of acute fracture or dislocation in the right hand third finger. No evidence of soft tissue air or radiopaque foreign body.) Radiology Impression Discussion of test interpretation with radiology: I have reviewed the radiologist's reading. Discharge Plan Discharge Clinical Impression: Laceration of finger of right hand Patient Disposition: Home, Self-Care Instructions: Laceration (ED) Additional Instructions: Take your medications as prescribed. If you were prescribed antibiotics today, it is important that you take your medication to their entirety, do not skip any doses, do not finish them early. Follow-up with your primary care provider this week. Return to the emergency department with new or worsening symptoms. In case of emergency call 911 Allow the glue to fall off on its own Prescriptions: No Action ondansetron HCl [Zofran] 4 mg tablet 4 mg PO Q8H PRN (Reason: nausea and vomiting) Qty: 10 0RF ibuprofen 800 mg tablet 800 mg PO TID epinephrine 0.3 mg/0.3 mL auto-injector 0.3 mg IM Q4H PRN ParaGard T 380A 380 square mm intrauterine device intrauterine Citrucel 500 mg tablet 500 mg PO TID Qty: 90 5RF docusate sodium [Colace] 100 mg capsule 200 mg PO BEDTIME Qty: 60 5RF polyethylene glycol 3350 [Miralax] 17 gram/dose powder 17 g PO DAILY Qty: 510 6RF bisacodyl [Dulcolax (bisacodyl)] 10 mg suppository 10 mg MO DAILY PRN (Reason: constipation) Qty: 20 0RF Referrals: Physician,Unknown J [Primary Care Provider] - 2 days Stand Alone Forms: Work/School Release Print Language: [place] Islander
[2023-09-14 17:13] VITALS: BP 122/62; PULSE 72; RESP 18; TEMP 37; O2SAT 99
[2023-09-14] MEDS: Diphth,Pertus(ACell),Tet Adult 0.5 ML SYRINGE IM (17:16)
[2023-09-14] MEDS: Acetaminophen 325 MG TABLET 650 MG PO (17:17)
[2023-09-14 17:20] VITALS: BP 121/70; PULSE 78; RESP 18; TEMP 36.6; O2SAT 98
== END 2023-09-14 17:20 | disposition home or self-care (01) ==
PROVIDERS: Emergency Provider Emergency Medicine Emergency Medical Services
DX: S61.212A Laceration without foreign body of right middle finger without damage to nail, initial encounter (principal); S60.412A Abrasion of right middle finger, initial encounter; W26.9XXA Contact with unspecified sharp object(s), initial encounter; Y93.9 Activity, unspecified; Y92.9 Unspecified place or not applicable; Y99.8 Other external cause status; Z79.899 Other long term (current) drug therapy; Z23 Encounter for immunization
CPT/HCPCS: 12001; 73140; 90471; 90715; 99284

== ENCOUNTER 2024-10-28 13:05 | Outpatient (REF) | payer OTHER, SELFPAY ==
--- OUTSIDE RECORDS SUMMARY | 2024-10-28 14:40 | XMS_ITS | Encounter Summary ---
Author Organization [facility] Address [address] [place] [address] Phone Care Team Providers Care Senior Data Scientist Name Role Phone Lenora Jim MD Primary Care Provider Unavailabl e Encounter Details Date Type Department Care Team (Late st Contact Info) Description 10/28/2009 Documentation [facility] Family Medicine [address] [place] [address] Family Medicine, Physician [address] [place] [address] Social History Tobacco Use Types Packs/Day Years [...] on filedocumented in this encounter Care Teams Senior Data Scientist Relationship Specialty Start Date End Date Lenora Jim MD PCP - General 01/18/17 documented as of this encounter
--- OUTSIDE RECORDS SUMMARY | 2024-10-28 14:40 | XMS_ITS | Clinical Summary ---
Author Organization [facility] Address [address] [place] [phone] Phone Care Team Providers Care Residential Carpenter Name Role Phone Lenora Jim MD Primary [...] complete this topic Procedures * Due to [place] state law, this organization might not be sharing sensitive test results. Procedure Name Priority Date/Time Associated Diagnosis Comments CHLAMYDIA AND GONORRHEA, AMPLIFIED Routine 08/13/2012 12:32 PM EST from Last 3 Months or Most Recently Relevant to Health Maintenance Results * Due to [place] state law, this organization might not be sharing sensitive test results. * Chlamydia and Gonorrhoea, Amplified (08/13/2012 12:32 PM EST) URINE GC AMP PROBE NEGATIVE [facility] Comment: NO NEISSERIA GONORRHOEAE RNA DETECTED IN THIS PATIENT'S SAMPLE. ? (REFERENCE RANGE/NORMAL VALUE: NOT DETECTED) ? NOTE: THIS TEST USES ACCOUNTING SYSTEM EXPERT-MEDIATED AMPLIFICATION METHOD TO DETECT rRNA FROM C.TRACHOMATIS [...] [facility] [address] [place] [address], [place] from Last 3 Months or Most Recently Relevant to Health Maintenance Care Teams Residential Carpenter Relationship Specialty Start Date End Date Lenora Jim MD PCP - General 01/18/17
--- OUTSIDE RECORDS SUMMARY | 2024-10-28 14:40 | XMS_ITS | Encounter Summary ---
Author Organization [facility] Address [address] [place] [address] Phone Care Team Providers Care Tire Center Supervisor Name Role Phone Lenora Jim MD Primary Care Provider Unavailabl e Encounter Details Date Type Department Care Team (Late st Contact Info) Description 01/24/2017 Conversion Encounter [address] [address] Social History Tobacco Use Types Packs/Day Years [...] on filedocumented in this encounter Care Teams Tire Center Supervisor Relationship Specialty Start Date End Date Lenora Jim MD PCP - General 01/18/17 documented as of this encounter
[2024-10-28 16:21] LABS: MANUAL DIFF FLAG NO
[2024-10-28 16:28] LABS: Appearance Urine Turbid; Color Urine Dark Yellow; Glucose Urine UA Negative (Negative); Leukocyte Esterase Urine Moderate (2+) (Negative); Nitrite Urine Positive (Negative); PH 5.5 (5.0-9.0); Specific Gravity - Urine 1.025 (1.005-1.025); UMIC TRIGGER UA YES; Urine Blood Large (3+) (Negative); Urine Ketones >=160 mg/dL (Negative); Urine Protein Trace mg/dL (Neg-Trace)
[2024-10-28 16:38] LABS: Basophils Percent Auto 0.3 % (0-2); Eosinophils Percent Auto 0.3 % (0-4); Hematocrit 39.8 % (37.0-47.0); Hemoglobin 13.3 g/dl (12.0-16.0); Imm Gran Abs Auto 0.04 X10*3/uL (0.00-0.03); Imm Gran Pct Auto 0.4 % (0.0-0.4); Lymphocytes Absolute Auto 1.7 X10*3/uL (1.2-4.9); Lymphocytes Percent Auto 19.1 % (20-40); Mean Corpuscular HGB Conc 33.4 g/dl (31.0-35.0); Mean Corpuscular Hemoglobin 26.5 pg (27.0-33.0); Mean Corpuscular Volume 79.4 fL (80.0-98.0); Monocytes Absolute Auto 0.6 X10*3/uL (0.1-1.2); Neutrophils Absolute Auto 6.7 x10*3/uL (2.0-8.3); Neutrophils Percent Auto 73.9 % (45-73); Platelet Count 288 X10*3/uL (160-400); Red Blood Count 5.01 X10*6/uL (4.20-5.50); Red Cell Distribution Width 13.9 % (11.0-16.0); White Blood Count 9.1 X10*3/uL (4.8-10.8)
[2024-10-28 16:54] LABS: Bacteria Urine 4+ (None Seen); Hyaline Casts Urine 0-2 /LPF (0-2); RBC Urine 0-2 /HPF (0-2)
[2024-10-28 17:15] LABS: TSH reflex Free T4 0.65 uIU/mL (0.32-4.0)
[2024-10-29 03:45] LABS: Syphilis Screen Nonreactive (Nonreactive)
[2024-10-29 04:37] LABS: HBS Num1 0.54 mIU/mL (0-7.99); HBc Num1 0.09 S/CO (0.00-0.79); HBsAGNum1 0.32 S/CO (0.00-0.99); HIV AB/AG Nonreactive (Nonreactive); HIV Num 1 0.07 S/CO (0.00-0.99); Hepatitis B Core Antibody Nonreactive (Nonreactive); Hepatitis B Surface Antigen Negative (Negative); ~HepC Num1 0.09 S/CO (0.00-0.79); ~Hepatitis B Surface Antibody NONREACTIVE (Nonreactive); ~Hepatitis C Antibody Nonreactive (Nonreactive)
== END 2024-10-28 13:06 | disposition home or self-care (01) ==
LOC: HO.HMGCLDS 13:05
PROVIDERS: PCP Internal Medicine; Visit Provider Internal Medicine
DX: Z00.00 Encounter for general adult medical examination without abnormal findings (principal)
CPT/HCPCS: 36415; 81001; 84443; 85025; 86704; 86706; 86780; 86803; 87086; 87088; 87186; 87340; 87389; 96127; 99395

== ENCOUNTER 2024-10-28 13:05 | Outpatient (AMB) | payer OTHER, SELFPAY ==
--- NOTE | 2024-10-28 13:15 | A.OFFPC_ITS ---
Vital Signs 10/28/24 13:22 Height 5 ft 1 in Weight 212 lb BMI 40.1 BP 122/70 Blood Pressure Location Lt brachial Position Sitting Respiration 18 Pulse 83 Pulse Source Pulse Oximeter Temp 98.3 F Temp Source Oral Pulse Oximetry (%) 100 Oxygen Delivery Method Room Air Intake Visit Reasons: PE Med review Intake Note: Pt is here today for PE. Allergies seafood Allergy (Severe, Verified 10/28/24 13:29) Anaphylaxis nitrofurantoin Adverse Reaction (Intermediate, Verified 10/28/24 13:29) Nausea and Vomiting Medication List - Last Reconciled 10/28/24 by Radha Dobbs MD bisacodyl (Dulcolax (bisacodyl)) 10 mg HI DAILY PRN copper (ParaGard T 380A) intrauterine epinephrine 0.3 mg IM Q4H PRN ibuprofen 800 mg PO TID ondansetron HCl (Zofran) 4 mg PO Q8H PRN polyethylene glycol 3350 (Miralax) 17 grams PO DAILY Tobacco use date assessed: 10/28/24 Dental Screening Dental Screen Date: 10/28/24 Did you have a dental visit in the last 12 months?: Yes Did you have a dental problem in the last 6 months where you did not have access to dental care?: No Was dental information given to patient?: Patient has dentist HPI PE Med review HPI Details Pt presents for PE.She is waiting to have her IUD replaced. Pt has been under a lot of stress for the last 3 months, job and personal. Pt c/o insomnia and poor appetite. Patient is planning to start counseling. She is not interested in taking medications for anxiety and depression [facility] Medical History Diarrhea GERD (gastroesophageal reflux disease) IUD check up Pain of left thumb Annual physical exam Kidney stones Surgical History History of dilatation and curettage History of section Family History Father Diabetes mellitus Mother Asthma History of blood clots Mental health disorder Maternal Grandfather No problems noted. Maternal Grandmother Breast cancer Mental health disorder Paternal Grandfather Diabetes mellitus Paternal Grandmother No problems noted. Brother No problems noted. Brother No problems noted. Brother No problems noted. Brother No problems noted. Sister No problems noted. Sister No problems noted. Sister No problems noted. Sister No problems noted. Sister No problems noted. Sister No problems noted. Son No problems noted. Social History Housing: House Patient Tobacco Use Status: Never used Tobacco e-Cigarette/Vaping Use: Never Used Current occupational status: unemployed Cognitive needs: No Hearing needs: No Vision needs: Yes Female Reproductive History Menstrual Age of Menarche: 8 Questionnaire PHQ-9 Over the last 2 weeks, how often have you been bothered by any of the following problems? 1. Little interest or pleasure in doing things: more than half the days 2. Feeling down, depressed, or hopeless: more than half the days 3. Trouble falling or staying asleep, or sleeping too much: several days 4. Feeling tired or having little energy: several days 5. Poor appetite or overeating: not at all 6. Feeling bad about yourself - or that you are a failure or have let yourself o r your family down: several days 7. Trouble concentrating on things, such as reading the newspaper or watching television: several days 8. Moving or speaking so slowly that other people could have noticed. Or the opposite - being so fidgety or restless that you have been moving around a lot more than usual: not at all 9. Thoughts that you would be better off or of hurting yourself in some way: not at all Total score: 8 Depression Screening Interpretation: Negative Depression Screening Done: Yes 68134 - PHQ-9 Billing: Yes Source: Developed by Drs. Emigdio Traylor, Briana Campos, Kwan Flood and colleagues, with an educational butch from [employer]. Thrive Questionnaire Date Thrive assessed: 02/27/21 I am a: Patient What is your living situation today?: I have a place to live, but I am worried about losing it in the future Within the past 12 months, did the food you bought not last and you didn't have the money to get more?: Sometimes True Within the past 12 months, did you worry whether your food would run out before you got money to buy more?: Sometimes True Do you have trouble paying for medicines?: I choose not to answer this question Do you have trouble getting transportation to medical appointments?: No Do you have trouble paying your heating and electricity bill?: Yes Do you have trouble taking care of your child, family member or friend?: No Do you have trouble with day-to-day activities such as bathing, preparing meals, shopping, managing finances, etc.?: No Are you currently unemployed and looking for a job?: Yes Are you interested in more education?: Yes Please select the resources that you would like help with: Housing/Halfway, Utilities and Job search/training Currently or been in a relationship where the following occur: No concerns reported THRIVE Score: 4 AUDIT C Alcohol Use Questionnaire (AUDIT-C) 1. How often do you have a drink containing alcohol?: Never 3. How often do you have six or more drinks on one occasion?: Never Total Score: 0 MICHAEL-7 AMB Questionnaire MICHAEL-7 Date MICHAEL - 7 assessed: 10/28/24 Feeling nervous, anxious, or on edge: 1 = Several days Not being able to stop or control worryin = Several days Worrying too much about different things: 1 = Several days Trouble relaxin = Several days Being so restless that it is hard to sit still: 0 = Not at all Becoming easily annoyed or irritable: 1 = Several days Feeling afraid as if something awful might happen: 0 = Not at all Total MICHAEL-7 score (0-4 normal; 5-9 mild; 10-14 moderate; 15-21 severe): 5 Source: Developed by Drs. Emigdio Traylor, Briana Campos, Kwan Flood and colleagues, with an educational butch from [employer]. MICHAEL-7 Assessment Billing MICHAEL-7 Assessment Tool: MICHAEL-7 Assessment 94511 Review of Systems Const All systems reviewed & are unremarkable except as noted in HPI and below Eyes Reports no additional complaints ENT Reports no additional complaints Card Reports no additional complaints Resp Reports no additional complaints GI Reports no additional complaints Reports no additional complaints Physical exam (Primary Care) Vital Signs: Last Vital Signs Temp 98.3 F 10/28/24 13:22 Pulse 83 10/28/24 13:22 Resp 18 10/28/24 13:22 BP 122/70 10/28/24 13:22 Pulse Ox 100 05/21/25 13:22 Oxygen Delivery Method Room Air 10/28/24 13:22 BMI result Body Mass Index 40.1 Tobacco/Smoking Status: Tobacco use Status Tobacco use date assessed 10/28/24 10/28/24 13:33 Patient Tobacco Use Status Never used Tobacco 10/28/24 13:15 e-Cigarette/Vaping Use Never Used 10/28/24 13:15 PHQ-9: PHQ-9 Score PHQ-9: Total score 8 10/28/24 13:33 Depression Screening Interpretation: Negative Thrive Assessment: Date of Thrive Assessment Date Thrive assessed 02/27/21 10/28/24 13:15 Currently or been in a relationship where the following occur: No concerns reported Const General: no acute distress HENMT Head: Yes normal to inspection Ears: hearing grossly normal bilaterally General nose exam: Normal external nose present Mouth: Normal oral and palatal mucosa present Eyes General: appearance normal, both eyes and all related structures Neck Neck: Yes no lymphadenopathy and Yes supple Resp Effort & Inspection: normal respiratory effort Auscultation: clear to auscultation bilaterally Cardio Rhythm: regular rhythm Heart sounds: S1 normal heart sound present and S2 normal heart sound present GI Inspection: Yes normal to inspection Palpation (GI): Soft to palpation Percussion: Yes normal to percussion Auscultation: normal bowel sounds Coding Level of Care Code Est Pt Prev Care 18-39y(40834) Diagnoses Annual physical exam Z00. Additional Codes MICHAEL-7 Assessment Billing - MICHAEL-7 Assessment Tool: MICHAEL-7 Assessment 04738 ([id number]) PHQ-9 - 88082 - PHQ-9 Billing: Yes ([id number]) Assessment & Plan Assessment & Plan (1) Annual physical exam: Code(s): Z00.00 - Encounter for general adult medical examination without abnormal findings Category: Medical Plan: well balanced diet, regular exercise, weight loss discussed, check labs today. Clearing Inspector for pap/IUD Orders: Orders UA w Microscopic Today Z00.00 - Encounter for general adult medical examination without abnormal findings Complete Blood Count Auto Diff Today Z00.00 - Encounter for general adult medical examination without abnormal findings Lipid Panel Today Z00.00 - Encounter for general adult medical examination without abnormal findings TSH reflex Free T4 Today Z00.00 - Encounter for general adult medical examination without abnormal findings Urine Culture Today Z00.00 - Encounter for general adult medical examination without abnormal findings HIV Ab/Ag Today Z00.00 - Encounter for general adult medical examination without abnormal findings CT NG by PCR Today Z00.00 - Encounter for general adult medical examination without abnormal findings Comprehensive [place]. Panel Fast Today Z00.00 - Encounter for general adult medical examination without abnormal findings Hepatitis B,C Profile Today Z00.00 - Encounter for general adult medical examination without abnormal findings Syphilis Screen Today Z00.00 - Encounter for general adult medical examination without abnormal findings
[2024-10-28 13:22] VITALS: BP 122/70; PULSE 83; RESP 18; TEMP 36.8; O2SAT 100; BMI 40.1
--- OUTSIDE RECORDS SUMMARY | 2024-10-28 13:41 | XMS_ITS | Encounter Summary ---
Author Organization [facility] Address [address] [place] [phone] Phone Care Team Providers Care Hospice Admitting Clerk Name Role Phone Lenora Jim MD Primary Care Provider Unavailabl e Encounter Details Date Type Department Care Team (Late st Contact Info) Description 01/24/2017 Conversion Encounter [address] [address] Social History Tobacco Use Types Packs/Day Years Used Date Smoking Tobacco: Never Comments:Never smoker Comments Unknown Sex and Gender Information Value Date Recorded Sex Assigned at Not on file Legal Sex Female 4:44 PM EDT Gender Identity Not on file Sexual Orientation Not on file documented as of this encounter Plan of Treatment Not on file documented as of this encounter Visit Diagnoses Not on filedocumented in this encounter Care Teams Hospice Admitting Clerk Relationship Specialty Start Date End Date Lenora Jim MD PCP - General 01/18/17 documented as of this encounter
--- OUTSIDE RECORDS SUMMARY | 2024-10-28 13:41 | XMS_ITS | Clinical Summary ---
Author Organization [facility] Address [address] [place] [phone] Phone Care Team Providers Care Supervisor Engine Assembly Name Role Phone Lenora Jim MD Primary Care Provider Unavailabl e Immunizations Immunization Administration Dates Next Due DTaP 5 03/13/2000, 7,10/29/1995, 996,02/18/1995 H1N1 06/16/2009 HPV, Quadrivalent 11/17/2007,07/18/2007,03/28/20 07 Hep B, ped/adol 08/28/1996,08/06/1995,1994 Hib (PRP-T) 10/29/1995,08/06/1995,02/18/1995 IPV 03/13/2000, 6,08/06/1995, 995 Influenza Split 03/13/2011 Influenza, injectable, trivalent 06/16/2009,05/10 MMR 06/24/2001,03/13/2000,02/18/1995 Meningococcal Conj (Menactra) MCV4P 05/28/2008 Tdap 03/28/2007 Family History Relation Name Status Comments Brother 1 Alive Brother: Asthma , ADD/ADHD Brother 2 Brother: Asthma , ADD/ADHD Cousin Cousin: Seizure disorder Father Alive Father: Alive a nd well Maternal Grandmother Materna l grandmother: Hepatitis, Asthma Mother Alive Mother: Obesity , Asthma, Alive and well Paternal Grandfather Paterna l uncle: Migraines Paternal Grandmother Paterna l grandmother: Diabetes mellitus Social History Tobacco Use Types Packs/Day Years Used Date Smoking Tobacco: Never Comments:Never smoker Comments Unknown Sex and Gender Information Value Date Recorded Sex Assigned at Not on file Legal Sex Female 4:44 PM EDT Gender Identity Not on file Sexual Orientation Not on file Last Filed Vital Signs Vital Sign Reading Time Taken Comments Blood Pressure 120/60 08/12/2012 12:00 AM EST Pulse 76 03/13/2011 12:00 AM EDT Temperature 37.3 ??C (99.1 ??F) 05/07/2011 12:[address] Respiratory Rate - - Oxygen Saturation - - Inhaled Oxygen Concentration - - Weight 76.7 kg (169 lb) 08/12/2012 12:00 AM EST Height 154.4 cm (5' 0.8 ) 08/12/2012 12:00 AM ES T Body Mass Index 32.14 08/12/2012 12:00 AM EST Plan of Treatment Health Maintenance Due Date Last Done Comments Varicella Vaccines (1 of 2 - 13+ 2-dose series) 2007 DTaP,Tdap,and Td Vaccines (7 - Td or Tdap) 03/28/2017 03/28/2007, 03/13/2000, 08/28/1996, Additional history exists Influenza Vaccines (#1) 2024 03/13/20, 06/16/2009, 05/28/2008 COVID-19 Vaccine ( season) 2024 HIB Vaccines Completed 10/29/1995, 07/12, 02/18/1995 Hepatitis B Vaccines Completed 08/28/1996, 08/06/1995, 1994 IPV Vaccines Completed 03/13/2000, 10/09, 08/06/1995, Additional history exists MMR Vaccines Completed 06/24/2001, 09/1999, 02/18/1995 HPV Vaccines Completed 11/17/2007, 01/2008, 03/28/2007 Meningococcal Vaccine Aged Out 05/28/2008 No dequan josiah eligible based on patient's age to complete this topic Hepatitis A Vaccines Aged Out No long er eligible based on patient's age to complete this topic Men B Vaccine Aged Out No longer elig ible based on patient's age to complete this topic Pneumococcal Vaccine Aged Out No long er eligible based on patient's age to complete this topic Procedures * Due to [place] state law, this organization might not be sharing sensitive test results. Procedure Name Priority Date/Time Associated Diagnosis Comments CHLAMYDIA AND GONORRHEA, AMPLIFIED Routine 08/13/2012 12:32 PM EST from Last 3 Months or Most Recently Relevant to Health Maintenance Results * Due to [place] state law, this organization might not be sharing sensitive test results. * Chlamydia and Gonorrhoea, Amplified (08/13/2012 12:32 PM EST) URINE GC AMP PROBE NEGATIVE [facility] Comment: NO NEISSERIA GONORRHOEAE RNA DETECTED IN THIS PATIENT'S SAMPLE. ? (REFERENCE RANGE/NORMAL VALUE: NOT DETECTED) ? NOTE: THIS TEST USES PAIN COORDINATOR-MEDIATED AMPLIFICATION METHOD TO DETECT rRNA FROM C.TRACHOMATIS AND N.GONORRHOEAE. A NEGATIVE RESULT DOES NOT PRECLUDE INFECTION. THE APTIMA COMBO 2 ASSAY IS NOT INTENDED FOR THE EVALUATION OF SUSPECTED SEXUAL ABUSE OR FOR OTHER MEDICO LEGAL INDICATIONS. THERAPEUTIC FAILURE OR SUCCESS CANNOT BE DETERMINED WITH THE APTIMA COMBO 2 ASSAY SINCE NUCLEIC ACID MAY PERSIST FOLLOWING APPROPRIATE ANTIMICROBIAL THERAPY. IN THE CASE OF A NEGATIVE URINE RESULT, TESTING OF AN ENDOCERVICAL (FEMALE) OR URETHRAL (MALE) SPECIMEN IS RECOMMENDED IF THERE IS HIGH CLINICAL SUSPICION OF INFECTION. URINE CHLAMYDIA AMP PROBE NEGATIVE [facility] Comment: NO CHLAMYDIA TRACHOMATIS RNA DETECTED IN THIS PATIENT'S SAMPLE. ? (REFERENCE RANGE/NORMAL VALUE: NOT DETECTED) 08/13/2012 12:3 2 PM EST Narrative [facility] - 08/13/2012 12:32 PM EST URINE CHLAMYDIA GC AMP PROBE us Lenora Jim MD LAB MICROBIOLOGY - GENERAL ORDER HEBER Final Result [facility] [address] [place] [address], [place] from Last 3 Months or Most Recently Relevant to Health Maintenance Care Teams Supervisor Engine Assembly Relationship Specialty Start Date End Date Lenora Jim MD PCP - General 01/18/17
--- OUTSIDE RECORDS SUMMARY | 2024-10-28 13:42 | XMS_ITS | Encounter Summary ---
Author Organization [facility] Address [address] [place] [address] Phone Care Team Providers Care Brake Lining Maker Name Role Phone Lenora Jim MD Primary Care Provider Unavailabl e Encounter Details Date Type Department Care Team (Late st Contact Info) Description 10/28/2009 Documentation [facility] [place] Family Medicine [address] [place] [address] Family Medicine, Physician [address] [place] [address] Social History Tobacco Use Types Packs/Day Years Used Date Smoking Tobacco: Never Assessed Comments Unknown Sex and Gender Information Value Date Recorded Sex Assigned at Not on file Legal Sex Female 4:44 PM EDT Gender Identity Not on file Sexual Orientation Not on file documented as of this encounter Plan of Treatment Not on file documented as of this encounter Visit Diagnoses Not on filedocumented in this encounter Care Teams Brake Lining Maker Relationship Specialty Start Date End Date Lenora Jim MD PCP - General 01/18/17 documented as of this encounter
== END 2024-10-28 14:18 | disposition home or self-care (01) ==
LOC: HO.HMCC 13:06
PROVIDERS: PCP Internal Medicine; Visit Provider Internal Medicine
DX: Z00.00 Encounter for general adult medical examination without abnormal findings (principal)

== ENCOUNTER 2024-10-29 13:08 | Outpatient (REF) | payer OTHER, SELFPAY ==
--- OUTSIDE RECORDS SUMMARY | 2024-10-29 13:11 | XMS_ITS | Clinical Summary ---
Author Organization [facility] Address [address] [place] [phone] Phone Care Team Providers Care Machine Clothing Replacer Name Role Phone Lenora Jim MD Primary [...] complete this topic Procedures * Due to [place] state law, this organization might not be sharing sensitive test results. Procedure Name Priority Date/Time Associated Diagnosis Comments CHLAMYDIA AND GONORRHEA, AMPLIFIED Routine 08/13/2012 12:32 PM EST from Last 3 Months or Most Recently Relevant to Health Maintenance Results * Due to [place] state law, this organization might not be sharing sensitive test results. * Chlamydia and Gonorrhoea, Amplified (08/13/2012 12:32 PM EST) URINE GC AMP PROBE NEGATIVE [facility] Comment: NO NEISSERIA GONORRHOEAE RNA DETECTED IN THIS PATIENT'S SAMPLE. ? (REFERENCE RANGE/NORMAL VALUE: NOT DETECTED) ? NOTE: THIS TEST USES AUTOMOBILE CLUB TRAVEL COUNSELOR-MEDIATED AMPLIFICATION METHOD TO DETECT rRNA FROM C.TRACHOMATIS [...] OF INFECTION. URINE CHLAMYDIA AMP PROBE NEGATIVE [facility] Comment: NO CHLAMYDIA TRACHOMATIS RNA DETECTED IN THIS PATIENT'S SAMPLE. ? (REFERENCE RANGE/NORMAL VALUE: NOT DETECTED) 08/13/2012 12:3 2 PM EST Narrative [facility] - 08/13/2012 12:32 PM EST URINE CHLAMYDIA GC AMP PROBE us Lenora Jim MD LAB MICROBIOLOGY - GENERAL ORDER HEBER Final Result [facility] [address] [place] [address], [place] from Last 3 Months or Most Recently Relevant to Health Maintenance Care Teams Machine Clothing Replacer Relationship Specialty Start Date End Date Lenora Jim MD PCP - General 01/18/17
--- OUTSIDE RECORDS SUMMARY | 2024-10-29 13:11 | XMS_ITS | Encounter Summary ---
Author Organization [facility] Address [address] [place] [address] Phone Care Team Providers Care Customs Appraiser Name Role Phone Lenora Jim MD Primary Care Provider Unavailabl e Encounter Details Date Type Department Care Team (Late st Contact Info) Description 01/24/2017 Conversion Encounter [address] [address] Social History Tobacco Use Types Packs/Day Years [...] on filedocumented in this encounter Care Teams Customs Appraiser Relationship Specialty Start Date End Date Lenora Jim MD PCP - General 01/18/17 documented as of this encounter
--- OUTSIDE RECORDS SUMMARY | 2024-10-29 13:11 | XMS_ITS | Encounter Summary ---
Author Organization [facility] Address [address] [place] [phone] Phone Care Team Providers Care Licensed Plumber Name Role Phone Lenora Jim MD Primary Care Provider Unavailabl e Encounter Details Date Type Department Care Team (Late st Contact Info) Description 10/28/2009 Documentation [facility] Family Medicine [address] [place] [address] Family Medicine, Physician [address] [place] [address] Social History Tobacco Use Types Packs/Day Years [...] on filedocumented in this encounter Care Teams Licensed Plumber Relationship Specialty Start Date End Date Lenora Jim MD PCP - General 01/18/17 documented as of this encounter
[2024-10-29 16:33] LABS: Alanine Aminotransferase 25 U/L (0-31); Albumin Level 4.9 g/dL (3.5-5.0); Alkaline Phosphatase 51 U/L (39-117); Anion Gap 14 (12-20); Aspartate Amino Transferase 28 U/L (5-31); Bilirubin Total 0.6 mg/dL (0.0-1.0); Blood Urea Nitrogen 7 mg/dL (9-16); Calcium 9.5 mg/dL (8.4-10.2); Carbon Dioxide 22 mmol/L (22-29); Chloride 108 mmol/L (96-108); Cholesterol 148 mg/dL (<200); Estimated Glomerular Filt Rate > 60; Glucose Fasting 87 mg/dL (60-99); HDL Cholesterol 45 mg/dL (>40); LDL Cholesterol Calculated 90 mg/dL (<100); Sodium 140 mmol/L (135-145); Triglycerides 66 mg/dL (<150)
[2024-10-30 03:36] LABS: CT PCR NOT DETECTED (Not Detect.); NG PCR NOT DETECTED (Not Detect.)
== END 2024-10-29 13:09 | disposition home or self-care (01) ==
LOC: HO.HMGCLDS 13:08
PROVIDERS: PCP Internal Medicine; Visit Provider Internal Medicine
DX: Z00.00 Encounter for general adult medical examination without abnormal findings (principal)
CPT/HCPCS: 80053; 80061; 87491; 87591

== ENCOUNTER 2024-12-10 11:03 | Outpatient (AMB) | payer OTHER, SELFPAY ==
[2024-12-10 11:21] VITALS: BP 110/72; BMI 41.2
--- NOTE | 2024-12-10 11:21 | MHC.OFFVIS ---
Vital Signs 12/10/24 11:21 Height 5 ft 1 in Weight 218 lb BMI 41.2 BP 110/72 Intake Visit Reasons: control consult (Lin PATTON) Intake Note: Patient has Paraqard for 7 years and is interested in Mirena. Information Interpreted: clinical only (Lindsay) Accompanied by: Self / Same As Patient Allergies seafood Allergy (Severe, Verified 12/10/24 11:28) Anaphylaxis nitrofurantoin Adverse Reaction (Intermediate, Verified 12/10/24 11:28) Nausea and Vomiting Medication List - Last Reconciled 12/10/24 by Brooklynn Valenzuela LPN bisacodyl (Dulcolax (bisacodyl)) 10 mg [place] DAILY PRN copper (ParaGard T 380A) intrauterine epinephrine 0.3 mg (0.3 mL) IM Q4H PRN ibuprofen 800 mg PO TID ondansetron HCl (Zofran) 4 mg PO Q8H PRN polyethylene glycol 3350 (Miralax) 17 grams PO DAILY Is last menstrual period known: Yes Last menstrual period: 11/26/24 Post menopausal: No Patient : No Followed by:: Brooklynn Valenzuela LPN Do you need a note to return to daycare/school/sports/work: No HPI Comments Details: Patient is here today for control consult. Current ParaGard user. She is now interested in changing her IUD to a Mirena IUD. She reports heavy menstrual cycles over the last few years now heavy 5/8 days. She reports pelvic cramping for the last few days. History of frequent BV. Previous GC chlamydia cultures were done 10/29/2024. Additional intimate partner since last exam, used a condom. [facility] Medical History Abnormal uterine bleeding (AUB) Diarrhea GERD (gastroesophageal reflux disease) IUD check up Pain of left thumb Annual physical exam Kidney stones Surgical History History of dilatation and curettage History of section Family History Father Diabetes mellitus Mother Asthma History of blood clots Mental health disorder Maternal Grandfather No problems noted. Maternal Grandmother Breast cancer Mental health disorder Paternal Grandfather Diabetes mellitus Paternal Grandmother No problems noted. Brother No problems noted. Brother No problems noted. Brother No problems noted. Brother No problems noted. Sister No problems noted. Sister No problems noted. Sister No problems noted. Sister No problems noted. Sister No problems noted. Sister No problems noted. Son No problems noted. Social History Housing: House Patient Tobacco Use Status: Never used Tobacco e-Cigarette/Vaping Use: Never Used Current occupational status: unemployed Cognitive needs: No Hearing needs: No Vision needs: Yes Female Reproductive History Menstrual Age of Menarche: 8 Date of last menstrual period: 11/26/24 control method: copper IUCD Total pregnancies: 2 Number of Living Children: 2 Review of Systems Const All systems reviewed & are unremarkable except as noted in HPI and below Physical Exam Vital Signs: Last Vital Signs BP 110/72 12/10/24 11:21 BMI result Body Mass Index 41.2 Const General: cooperative, healthy appearing and no acute distress Orientation/consciousness: patient oriented x3 GI Inspection: Yes normal to inspection Palpation (GI): Soft to palpation and Other GI palpation findings present (Nontender) Rectal Exam - Female: visual inspection normal General: Yes bladder normal to palpation External Female Exam: normal appearance of the urethra Speculum Exam - Vagina: normal appearance of the vagina, normal palpation and abnormal vaginal discharge (Thin milky discharge, large amount) Speculum Exam - Cervix: normal appearance of the cervix, normal palpation and Other cervical findings present (IUD strings at the os) Bimanual exam- vagina & uterus: normal bimanual exam, normal palpation, uterine size normal, bladder normal to palpation, normal palpation, uterine shape normal and non-tender Bimanual Exam- Adnexa, other: normal adnexae Neuro General: patient oriented x3 Results AMB Test Urine AMB Test Urine Negative Last Edit by Brooklynn Valenzuela LPN on 12/10/24 12:10 AMB Urinalysis Dipstick UR Leukocytes Negative Last Edit by Brooklynn Valenzuela LPN on 12/10/24 12:49 UR Nitrite Negative Last Edit by Brooklynn Valenzuela LPN on 12/10/24 12:49 UR Urobilinogen 2 Last Edit by Brooklynn Valenzuela LPN on 12/10/24 12:49 UR Protein Negative Last Edit by Brooklynn Valenzuela LPN on 12/10/24 12:49 UR Ph Last Edit by Brooklynn Valenzuela LPN on 12/10/24 12:49 UR Blood Moderate Last Edit by Brooklynn Valenzuela LPN on 12/10/24 12:49 UR Specific [place] 1.020 Last Edit by Brooklynn Valenzuela LPN on 12/10/24 12:49 UR Ketone Negative Last Edit by Brooklynn Valenzuela LPN on 12/10/24 12:49 UR Bilirubin Negative Last Edit by Brooklynn Valenzuela LPN on 12/10/24 12:49 UR Glucose Last Edit by Brooklynn Valenzuela LPN on 12/10/24 12:49 Results Reviewed Results Reviewed: Laboratory Last Values Tst Clinic Negative 12/10/24 11:55 Assessment & Plan Assessment & Plan (1) Abnormal uterine bleeding (AUB): Code(s): N93.9 - Abnormal uterine and vaginal bleeding, unspecified Category: Medical Plan: Discussed: Workup for AUB to include pelvic ultrasound. Recent TSH and CBC were completed in in normal range. EMB if indicated. Follow up pending ultrasound results for final plan of care. The patient expressed understanding and agreement with the plan of care. All of her questions and concerns were addressed to the best of my ability. (2) Counseling for control regarding intrauterine device (IUD): Code(s): Z30.09 - Encounter for other general counseling and advice on contraception Plan: Counseling regarding Mirena exchange. Advised pre procedure planning anticipatory guidance, something to eat and drink and take 3 ibuprofen 1 hour before her appointment. The patient expressed understanding and agreement with the plan of care. All of her questions and concerns were addressed to the best of my ability. (3) Pelvic cramping: Code(s): R10.2 - Pelvic and perineal pain Plan: GC and BV panel obtained. Urine dip-moderate blood. UPT is negative. Plan Patient concern as previous pregnancies were negative in early and only determined by blood work. HCG ordered to be drawn at lab today. Advised no UPT. The patient expressed understanding and agreement with the plan of care. All of her questions and concerns were addressed to the best of my ability. This note is constructed using voice recognition software. While every effort has been made to ensure accuracy, automotive refinisher errors may have been included. Orders: Orders HCG Quantitative Today N93.9 - Abnormal uterine and vaginal bleeding, unspecified Bacterial Vaginosis Panel Today N93.9 - Abnormal uterine and vaginal bleeding, unspecified AMB HCG Urine Test Today N93.9 - Abnormal uterine and vaginal bleeding, unspecified AMB Urinalysis Dipstick Today N93.9 - Abnormal uterine and vaginal bleeding, unspecified US pelvic and transvaginal Today N93.9 - Abnormal uterine and vaginal bleeding, unspecified CT NG by PCR Vag/Cerv Today N93.9 - Abnormal uterine and vaginal bleeding, unspecified Urine Culture Today R31.29 - Other microscopic hematuria Coding Level of Care Code Est Pt Level 3 (60825) Diagnoses Abnormal uterine bleeding (AUB) N93.9 Counseling for control regarding intrauterine device (IUD) Z30.09 Pelvic cramping R10.2
--- OUTSIDE RECORDS SUMMARY | 2024-12-10 11:55 | XMS_ITS | Encounter Summary ---
Author Organization [facility] Address [address] [place] [phone] Phone Care Team Providers Care Manager Digital Ad Operations Name Role Phone Lenora Jim MD Primary Care Provider Unavailabl e Encounter Details Date Type Department Care Team (Late st Contact Info) Description 01/24/2017 Conversion Encounter [address] [address] Social History Tobacco Use Types Packs/Day Years [...] on filedocumented in this encounter Care Teams Manager Digital Ad Operations Relationship Specialty Start Date End Date Lenora Jim MD PCP - General 01/18/17 documented as of this encounter
== END 2024-12-10 12:05 | disposition home or self-care (01) ==
LOC: HO.HWS 11:04
PROVIDERS: PCP Internal Medicine; Visit Provider Advanced Practice Midwife
DX: N93.9 Abnormal uterine and vaginal bleeding, unspecified (principal); Z30.09 Encounter for other general counseling and advice on contraception; R10.2 Pelvic and perineal pain
CPT/HCPCS: 99213

== ENCOUNTER 2024-12-10 11:03 | Outpatient (REF) | payer OTHER, SELFPAY ==
[2024-12-10 20:17] LABS: Bacterial Vaginosis PCR POSITIVE (Negative); Candida Group PCR NOT DETECTED (Not Detect); Candida glab krusei PCR NOT DETECTED (Not Detect); Trichomonas vaginalis PCR NOT DETECTED (Not Detect)
[2024-12-10 21:40] LABS: CT PCR NOT DETECTED (Not Detect.); NG PCR NOT DETECTED (Not Detect.)
== END 2024-12-10 11:04 | disposition home or self-care (01) ==
LOC: HO.LNP 11:03
PROVIDERS: PCP Internal Medicine; Visit Provider Advanced Practice Midwife
DX: N93.9 Abnormal uterine and vaginal bleeding, unspecified (principal); Z30.09 Encounter for other general counseling and advice on contraception; Z32.02 Encounter for pregnancy test, result negative; R10.2 Pelvic and perineal pain; R31.29 Other microscopic hematuria; Z79.899 Other long term (current) drug therapy
CPT/HCPCS: 81002; 81025; 81515; 87086; 87491; 87591; 99212

== ENCOUNTER 2024-12-15 15:01 | Outpatient (REF) | payer OTHER, SELFPAY ==
--- OUTSIDE RECORDS SUMMARY | 2024-12-15 15:44 | XMS_ITS | Encounter Summary ---
Author Organization [facility] Address [address] [place] [phone] Phone Care Team Providers Care Premix Concrete Batcher Name Role Phone Lenora Jim MD Primary Care Provider Unavailabl e Encounter Details Date Type Department Care Team (Late st Contact Info) Description 01/24/2017 Conversion Encounter [address] [address] Social History Tobacco Use Types Packs/Day Years [...] on filedocumented in this encounter Care Teams Premix Concrete Batcher Relationship Specialty Start Date End Date Lenora Jim MD PCP - General 01/18/17 documented as of this encounter
== END 2024-12-15 15:02 | disposition home or self-care (01) ==
LOC: HO.LAB 15:01
PROVIDERS: PCP Internal Medicine; Visit Provider Advanced Practice Midwife
DX: N93.9 Abnormal uterine and vaginal bleeding, unspecified (principal)
CPT/HCPCS: 36415; 84702

== ENCOUNTER 2025-01-29 21:07 | Emergency (ER) | payer OTHER, SELFPAY ==
--- NOTE | ~2025-01-29 | CT_ITS ---
CLINICAL HISTORY: LLQ CT abdomen and pelvis with contrast Comparison: US/WI/SR - US PELVIS TRANSABDOMINAL AND TRANSVAGINAL - 05/14/22 11:34 EST Findings: No consolidation or effusion. There is enlargement of the left kidney with delayed nephrogram and mild hydronephrosis. Mild enlargement of the left ureter is present and there is a 2 mm stone at the left ureterovesical junction. No hydronephrosis of the right kidney. Diffuse fatty infiltration of the liver is present. Liver is enlarged. There is a low-attenuation subcentimeter lesion in the lower pole of the left kidney, likely cyst but too small to fully characterize. Spleen, adrenal glands, and pancreas are normal. Gallbladder is normal. No bowel obstruction, pneumoperitoneum, or pneumatosis. Normal appendix. There is an IUD within the uterus in expected position. The bones are intact. IMPRESSION: Obstructive 2 mm stone at the left ureterovesical junction resulting in mild left hydroureteronephrosis and delayed nephrogram. This document has been electronically signed by: Alpesh Wolf MD on 01/30/2025 00:32:15
[2025-01-29 21:29] VITALS: BP 141/74; PULSE 77; RESP 18; TEMP 36.6; O2SAT 99; BMI 40.2
[2025-01-29 21:56] LABS: Hematocrit 37.2 % (37.0-47.0); Hemoglobin 12.5 g/dl (12.0-16.0); Mean Corpuscular HGB Conc 33.6 g/dl (31.0-35.0); Mean Corpuscular Hemoglobin 26.9 pg (27.0-33.0); Mean Corpuscular Volume 80.2 fL (80.0-98.0); NRBC Abs Auto 0.000 X10*3/uL (0.0-0.012); NRBC Pct Auto 0.0 /100WBC (0.0-0.2); Platelet Count 294 X10*3/uL (160-400); Red Blood Count 4.64 X10*6/uL (4.20-5.50); White Blood Count 13.5 X10*3/uL (4.8-10.8)
--- NOTE | 2025-01-29 22:50 | ED_ITS ---
HPI - Abdominal Pain General Chief Complaint: Abdominal Pain Stated Complaint: back and lower abd pain Time Seen by Provider: 01/29/25 22:37 Source: patient Mode of arrival: ambulatory Limitations: no limitations History of Present Illness ED Provider: Dr. Mary Killian HPI narrative: Patient comes to the emergency room complaining of left-sided abdominal pain radiating towards the back. Patient complaining of nausea and vomiting, patient states that she has history of kidney stones, ?many years ago? which she was able to pass by herself. Patient states that this pain feels different, it is mostly left lower quadrant pain rather than flank pain. Related Data Home Medications ?Medication ?Instructions ?Recorded ?Confirmed copper 380 square mm intrauterine intrauterine 1 10/28/24 device (ParaGard T 380A) ibuprofen 800 mg tablet 800 mg PO TID 05/30/2112/10 Previous Rx's ?Medication ?Instructions ?Recorded ondansetron HCl 4 mg tablet 4 mg PO Q8H PRN nausea and 05/08/21 (Zofran) vomiting #10 tabs bisacodyl 10 mg rectal suppository 10 mg [place] DAILY PRN constipation 08/06/22 (Dulcolax (bisacodyl)) #20 ea polyethylene glycol 3350 17 17 g PO DAILY #510 grams 0 08/06/22 gram/dose oral powder (Miralax) epinephrine 0.3 mg/0.3 mL 0.3 mg (0.3 mL) IM Q4H PRN 0 10/29/24 injection, auto-injector anaphylaxis #2 ea metronidazole 500 mg tablet 500 mg PO BID 7 days #14 t abs 12/22/24 ketorolac 10 mg tablet 10 mg PO Q8H PRN pain #12 ta bs 01/30/25 levofloxacin 500 mg tablet 500 mg PO DAILY #7 tabs ondansetron 4 mg disintegrating 4 mg PO Q8H #10 tabs 0 01/30/25 tablet tamsulosin 0.4 mg capsule 0.4 mg PO DAILY #14 caps Allergies Allergy/AdvReac Type Severity Reaction Status Date / Time seafood Allergy Severe Anaphylaxis Verified 01/29/25 21:32 nitrofurantoin AdvReac Intermediate Nausea and Verified 01/29/25 21:32 Vomiting Review of Systems Review of Systems Constitutional : No Weight loss, No Fever, No Chills, No Night Sweats, No Fatigue, No Malaise ENT/Mouth : No Hearing loss, No Ear Pain, No Nasal Congestion, No Sinus Pain, No Hoarseness, No sore throat, No Rhinorrhea, No Swallowing Difficulty Eyes: No Eye Pain, No Swelling, No Redness, No Foreign Body, No Discharge, No Vision Changes Cardiovascular : No Chest Pain, No SOB, No Dyspnea on Exertion, No Orthopnea, No Edema, No Palpitations Respiratory : No Cough, No Sputum, No Wheezing, No Smoke Exposure, No Dyspnea Gastrointestinal : Complaining of nausea and vomiting, no diarrhea, complaining of left lower quadrant pain radiating towards the left flank and left groin area. Genitourinary : Currently menstruating, No Dysuria, No Urinary Frequency, No Hematuria, No Urinary Incontinence, No Urgency, No Flank Pain, No Urinary Flow Changes, No Hesitancy Musculoskeletal : No joint pain, No Myalgias, No Joint Swelling Skin : No Skin Lesions, No rash Neuro : No Weakness, No Numbness, No Paresthesias, No Loss of Consciousness, No Dizziness, No Headache Psych : No Anxiety/Panic, No Depression, No SI/HI/AH/VH, No Social Issues, Heme/Lymph: No Bruising, No Bleeding,No Lymphadenopathy Endocrine : No Polyuria, No Polydipsia, No Temperature Intolerance [facility] Past Medical History Medical History Abnormal uterine bleeding (AUB) Diarrhea GERD (gastroesophageal reflux disease) IUD check up Pain of left thumb Annual physical exam Kidney stones Surgical History History of dilatation and curettage History of section Family History Family History Father Diabetes mellitus Mother Asthma History of blood clots Mental health disorder Maternal Grandfather No problems noted. Maternal Grandmother Breast cancer Mental health disorder Paternal Grandfather Diabetes mellitus Paternal Grandmother No problems noted. Brother No problems noted. Brother No problems noted. Brother No problems noted. Brother No problems noted. Sister No problems noted. Sister No problems noted. Sister No problems noted. Sister No problems noted. Sister No problems noted. Sister No problems noted. Son No problems noted. Social History Social History Housing: House Patient Tobacco Use Status: Never used Tobacco Smoked in Last 30 Days: No e-Cigarette/Vaping Use: Never Used Use of substances other than those prescribed or required for medical reasons: No Advance Directives: No Advance Directives Information Provided: No Current occupational status: unemployed Cognitive needs: No Hearing needs: No Vision needs: Yes Physical Exam ED Exam Exam: Appearance: Alert. Oriented X3. Very uncomfortable Eyes: Pupils equal, round and reactive to light. ENT: Pharynx normal. Neck: Normal inspection. Neck supple. No lymph nodes noted. No crepitus CVS: Normal heart rate and rhythm. Pulses normal. Normal S1 and S2 Respiratory: No respiratory distress. Breath sounds normal. No Wheezing. No rales Abdomen: Soft and nontender. No rigidity. No distention. Skin: Skin warm clammy, a bit pale, Normal skin turgor. Extremities: No lower extremity edema. No Lacerations. No Rash Neuro: Oriented X 3. No motor deficit. No sensory deficit. Moving all extremities. No slurred speech. CN 2 through 12 grossly intact Psych: calm, cooperative, normal affect Vital Signs: Vital Signs - 24 hr 01/29/25 21:29 01/29/25 23:24 01/30/25 01:29 Temperature 97.8 F 97.7 F 97.6 F Pulse Rate 77 54 56 Respiratory Rate 18 13 Blood Pressure 141/74 H 118/59 L 100/46 L Pulse Oximetry 99 100 96 Oxygen Delivery Method Room Air Room Air Room Air 01/30/25 01:36 Temperature Pulse Rate Respiratory Rate Blood Pressure 107/56 L Pulse Oximetry Oxygen Delivery Method BMI result Body Mass Index 40.2 Course Course Course Narrative: Patient comes in complaining of left lower quadrant pain, nausea and vomiting. The patient has history of kidney stones. All of patient's labs and imaging pending. Patient receiving IV fluids, Zofran and morphine for symptomatic relief Medical Decision Making Lab Data 01/29/25 21:50 01/29/25 22:56 Labs: Lab Results 01/29/25 01/29/25 01/30/25 Range/Units 21:50 22:56 01:10 WBC 13.5 H (4.8-10.8) X10*3/uL RBC 4.64 (4.20-5.50) X10*6/uL Hgb 12.5 (12.0-16.0) g/dl Hct 37.2 (37.0-47.0) % MCV 80.2 (80.0-98.0) fL MCH 26.9 L (27.0-33.0) pg MCHC 33.6 (31.0-35.0) g/dl RDW 14.6 (11.0-16.0) % Plt Count 294 (160-400) X10*3/uL MPV 9.5 (9.4-12.3) fL Absolute Nucleated RBC 0.000 (0.0-0.012) X10*3/uL Nucleated RBC % (auto) 0.0 (0.0-0.2) /100WBC Sodium 142 (135-145) mmol/L Potassium 3.6 (3.3-5.1) mmol/L Chloride 108 (96-108) mmol/L Carbon Dioxide 18 L (22-29) mmol/L Anion Gap 20 (12-20) BUN 9 (9-16) mg/dL Creatinine 0.93 (0.5-1.4) mg/dL Estim Creat Clear Calc 94.0 Estimated GFR > 60 Random Glucose 158 H (60-115) mg/dL Calcium 9.2 (8.4-10.2) mg/dL Magnesium 1.6 (1.6-2.6) mg/dL Total Bilirubin 0.3 (0.0-1.0) mg/dL Direct Bilirubin 0.2 (0.0-0.5) mg/dL AST 22 (5-31) U/L ALT 20 (0-31) U/L Alkaline Phosphatase 60 (39-117) U/L Total Protein 7.7 (6.5-8.0) g/dL Albumin 4.8 (3.5-5.0) g/dL Lipase 9 (8-78) U/L Beta HCG, Quant < 2 mIU/mL Urine Color Yellow Urine Appearance Clear Urine pH 7.5 (5.0-9.0) Ur Specific [place] >= 1.030 H (1.005-1.025) Urine Protein Trace (Neg-Trace) mg/dL Urine Glucose (UA) 100 H (Negative) mg/dL Urine Ketones 15 (Negative) mg/dL Urine Blood Moderate (2+) H (Negative) Urine Nitrite Negative (Negative) Ur Leukocyte Esterase Negative (Negative) Urine RBC >20 H (0-2) /HPF Urine WBC 0-5 (0-5) /HPF Ur Squamous Epith Cells 3-5 (0-2) /HPF Urine Bacteria 3+ (None Seen) Hyaline Casts 0-2 (0-2) /LPF Medications Administered Discontinued Medications Generic Name Dose Route Start Last Admin Trade Name Freq PRN Reason Stop Dose Admin Hydromorphone HCl 0.5 mg 01/30/25 00:11 01/30/25 00:17 Hydromorphone Hcl 0.5 Mg/0.5 Ml Syringe IVPUSH 01/30/25 00:12 0.5 mg ONCE ONE Administration Protocol Sodium Chloride 1,000 mls @ 999 mls/hr 01/29/25 22:44 01/30/25 02:13 Ns IVCONT 01/29/25 23:44 Infused .Q1H1M ONE Infusion Iohexol 85 ml 01/29/25 23:57 01/29/25 23:58 Iohexol 350 Mg/Ml 100 Ml Infus..Btl IV 01/29/25 23:58 85 ml ONCE ONE Administration Morphine Sulfate 4 mg 01/29/25 22:45 01/29/25 22:55 Morphine Sulfate 4 Mg/Ml Cartridge IVPUSH 01/29/25 22:46 4 mg ONCE ONE Administration Protocol Ondansetron HCl 4 mg 01/29/25 22:44 01/29/25 22:55 Ondansetron Hcl 4 Mg/2 Ml Vial IVPUSH 01/29/25 22:45 4 mg ONCE ONE Administration Discharge Plan Discharge Clinical Impression: Kidney stone Patient Disposition: Home, Self-Care Instructions: Kidney Stones (ED) Additional Instructions: Please follow-up with your primary care physician tomorrow. If you have any worsening or new symptoms, please return to the emergency room or call 911 Prescriptions: New ketorolac 10 mg tablet 10 mg PO Q8H PRN (Reason: pain) Qty: 12 0RF Rx Instructions: Do not use this medication with other NSAIDs, only Tylenol if needed tamsulosin 0.4 mg capsule 0.4 mg PO DAILY Qty: 14 0RF ondansetron 4 mg tablet,disintegrating 4 mg PO Q8H Qty: 10 0RF levofloxacin 500 mg tablet 500 mg PO DAILY Qty: 7 0RF No Action epinephrine 0.3 mg/0.3 mL auto-injector 0.3 mg IM Q4H PRN (Reason: anaphylaxis) Qty: 2 1RF metronidazole 500 mg tablet 500 mg PO BID 7 Days Qty: 14 0RF Rx Instructions: Take with food, Avoid alcohol and vinegar products ondansetron HCl [Zofran] 4 mg tablet 4 mg PO Q8H PRN (Reason: nausea and vomiting) Qty: 10 0RF ibuprofen 800 mg tablet 800 mg PO TID ParaGard T 380A 380 square mm intrauterine device intrauterine polyethylene glycol 3350 [Miralax] 17 gram/dose powder 17 g PO DAILY Qty: 510 6RF bisacodyl [Dulcolax (bisacodyl)] 10 mg suppository 10 mg [place] DAILY PRN (Reason: constipation) Qty: 20 0RF Stand Alone Forms: Work/School Release Print Language: Liberian
[2025-01-29 23:24] VITALS: BP 118/59; PULSE 54; RESP 13; TEMP 36.5; O2SAT 100
[2025-01-29 23:35] LABS: Alanine Aminotransferase 20 U/L (0-31); Albumin Level 4.8 g/dL (3.5-5.0); Alkaline Phosphatase 60 U/L (39-117); Anion Gap 20 (12-20); Aspartate Amino Transferase 22 U/L (5-31); Blood Urea Nitrogen 9 mg/dL (9-16); Calcium 9.2 mg/dL (8.4-10.2); Carbon Dioxide 18 mmol/L (22-29); Chloride 108 mmol/L (96-108); Creatinine Clr Calc Pharmacy 94.0; Estimated Glomerular Filt Rate > 60; Lipase 9 U/L (8-78); Magnesium 1.6 mg/dL (1.6-2.6); Potassium 3.6 mmol/L (3.3-5.1); Sodium 142 mmol/L (135-145); Total Protein 7.7 g/dL (6.5-8.0)
[2025-01-29] MEDS: iohexoL 350 MG/ML 100 ML INFUS..BTL 85 ML IV (23:58)
[2025-01-30 01:18] LABS: Appearance Urine Clear; Glucose Urine UA 100 mg/dL (Negative); PH 7.5 (5.0-9.0); Specific Gravity - Urine >= 1.030 (1.005-1.025); UMIC TRIGGER UACC YES
[2025-01-30 01:29] VITALS: BP 100/46; PULSE 56; TEMP 36.4; O2SAT 96
[2025-01-30 01:36] VITALS: BP 107/56
[2025-01-30 04:32] VITALS: BP 101/59; PULSE 63; RESP 16; TEMP 36.8; O2SAT 99
[2025-01-30 04:43] VITALS: BP 101/59; PULSE 63; RESP 16; TEMP 36.8; O2SAT 99
== END 2025-01-30 04:45 | disposition home or self-care (01) ==
PROVIDERS: Emergency Provider Emergency Medicine
DX: N20.0 Calculus of kidney (principal); R10.2 Pelvic and perineal pain; M54.50 Low back pain, unspecified; R11.2 Nausea with vomiting, unspecified; Z79.899 Other long term (current) drug therapy
CPT/HCPCS: 36415; 74177; 80053; 81001; 82248; 83690; 83735; 84702; 85027; 96361; 96374; 96375; 99284; J1171; J2270; J2405; Q9967

== ENCOUNTER → 2025-01-29 23:17 | Outpatient (BNV) | payer OTHER, SELFPAY | PROVIDERS: Emergency Provider Emergency Medicine; Visit Provider Radiology Diagnostic Radiology | DX: N20.1 Calculus of ureter (principal) | CPT/HCPCS: 74177 ==

== ENCOUNTER 2025-03-05 13:32 | Outpatient (REF) | payer OTHER, SELFPAY ==
--- NOTE | ~2025-03-05 | US_ITS ---
EXAMINATION: US PELVIS CLINICAL INFORMATION: Normal vaginal bleed COMPARISON: May 14, 2022. Correlated to CT abdomen and pelvis dated January 29, 2025 TECHNIQUE: Ultrasound of the pelvis is performed using both transabdominal and transvaginal transducers along with Doppler. Transvaginal imaging is performed due to inadequate visualization transabdominally. FINDINGS: Uterus: The uterus is anteversion flexion and measures 10 x 4 x 5 cm. The endocervical canal is closed. There is an intrauterine contraceptive device within the uterine cavity and not extending into the endocervical canal. The double wall endometrial thickness is limited due to presence of intrauterine device measuring less than 3 mm. The uterus is smooth in contour and has normal myometrial echogenicity. No visible fibroid. Adnexa: The ovaries are present with flow on color Doppler interrogation.. There is no pelvic ascites or fluid collection. Right ovary measures 2 x 2 x 2 cm. Volume: 2 cc. No solid or cystic lesion. Left ovary measures 2 x 3 x 2 cm. Volume: 5 cc. No solid or cystic lesion. US/US pelvic and transvaginal IMPRESSION: Intrauterine contraceptive device in satisfactory position. No ovarian torsion. Electronically signed by: Flex Gonzalez MD 03/05/2025 02:16 PM EDT
--- OUTSIDE RECORDS SUMMARY | 2025-03-05 14:53 | XMS_ITS | Clinical Summary ---
Author Organization [facility] Address [address] [place] [id number] Phone Care Team Providers Care Coffee Roaster Helper Name Role Phone Lenora Jim MD Primary [...] 76 03/13/2011 12:00 AM EDT Temperature 37.3 C (99.1 F) 05/07/2011 12:00 AM EST Respiratory Rate - - Oxygen Saturation - [...] 08/28/1996, Additional history exists Influenza Vaccines (#1) 2025 03/13/20, 06/16/2009, 05/28/2008 COVID-19 Vaccine ( season) 2025 HIB Vaccines Completed 10/29/1995, 07/12, 02/18/1995 Hepatitis [...] complete this topic Procedures * Due to [place] state law, this organization might not be sharing sensitive test results. Procedure Name Priority Date/Time Associated Diagnosis Comments CHLAMYDIA AND GONORRHEA, AMPLIFIED Routine 08/13/2012 12:32 PM EST from Last 3 Months or Most Recently Relevant to Health Maintenance Results * Due to [place] state law, this organization might not be sharing sensitive test results. * Chlamydia and Gonorrhoea, Amplified (08/13/2012 12:32 PM EST) URINE GC AMP PROBE NEGATIVE [facility] Comment: NO NEISSERIA GONORRHOEAE RNA DETECTED IN THIS PATIENT'S SAMPLE. (REFERENCE RANGE/NORMAL VALUE: NOT DETECTED) NOTE: THIS TEST USES ELECTRICAL EQUIPMENT TECHNICIAN-MEDIATED AMPLIFICATION METHOD TO DETECT rRNA FROM C.TRACHOMATIS [...] OF INFECTION. URINE CHLAMYDIA AMP PROBE NEGATIVE [facility] Comment: NO CHLAMYDIA TRACHOMATIS RNA DETECTED IN THIS PATIENT'S SAMPLE. (REFERENCE RANGE/NORMAL VALUE: NOT DETECTED) 08/13/2012 12:3 2 PM EST Narrative [facility] - 08/13/2012 12:32 PM EST URINE CHLAMYDIA GC AMP PROBE us Lenora Jim MD LAB MICROBIOLOGY - GENERAL ORDER HEBER Final Result [facility] [address] [place] [address], from Last 3 Months or Most Recently Relevant to Health Maintenance Care Teams Coffee Roaster Helper Relationship Specialty Start Date End Date Lenora Jim MD PCP - General 01/18/17
--- OUTSIDE RECORDS SUMMARY | 2025-03-05 14:53 | XMS_ITS | Encounter Summary ---
Author Organization [facility] Address [address] [place] [phone] Phone Care Team Providers Care Hydrotel Operator Name Role Phone Lenora Jim MD Primary Care Provider Unavailabl e Encounter Details Date Type Department Care Team (Late st Contact Info) Description 10/28/2009 Documentation [facility] Family Medicine [address] [place] [address] Family Medicine, Physician [address] [place] [address] Social History Tobacco Use Types Packs/Day Years [...] on filedocumented in this encounter Care Teams Hydrotel Operator Relationship Specialty Start Date End Date Lenora Jim MD PCP - General 01/18/17 documented as of this encounter
--- OUTSIDE RECORDS SUMMARY | 2025-03-05 14:53 | XMS_ITS | Encounter Summary ---
Author Organization [facility] Address [address] [place] [phone] Phone Care Team Providers Care Practice Billing Associate Name Role Phone Lenora Jim MD Primary Care Provider Unavailabl e Encounter Details Date Type Department Care Team (Late st Contact Info) Description 01/24/2017 Conversion Encounter [address] [id number] Social History Tobacco Use Types Packs/Day Years [...] on filedocumented in this encounter Care Teams Practice Billing Associate Relationship Specialty Start Date End Date Lenora Jim MD PCP - General 01/18/17 documented as of this encounter
== END 2025-03-05 13:33 | disposition home or self-care (01) ==
LOC: HO.US 13:32
PROVIDERS: Visit Provider Advanced Practice Midwife
DX: N93.9 Abnormal uterine and vaginal bleeding, unspecified (principal)
CPT/HCPCS: 76830; 76856

== ENCOUNTER → 2025-03-05 13:36 | Outpatient (BNV) | payer OTHER, SELFPAY | PROVIDERS: Visit Provider Radiology Diagnostic Radiology | DX: N93.9 Abnormal uterine and vaginal bleeding, unspecified (principal); Z97.5 Presence of (intrauterine) contraceptive device; M25.572 Pain in left ankle and joints of left foot | CPT/HCPCS: 73610; 76830; 76856 ==

== ENCOUNTER 2025-03-05 14:37 | Emergency (ER) | payer OTHER, SELFPAY ==
--- NOTE | ~2025-03-05 | XR_ITS ---
EXAMINATION: XR ANKLE, LEFT CLINICAL INFORMATION: trauma COMPARISON: 10/07/2017. TECHNIQUE: AP, lateral, and mortise views of the left ankle. FINDINGS: No fracture, dislocation, or suspicious bone lesion. Normal bone mineralization. Normal alignment. Joint spaces are preserved. Mortise is intact. The talar dome is normal. No significant arthropathy. Tiny plantar calcaneal spur. No significant ankle joint effusion. Soft tissues appear normal. XR/XR ankle LT min 3V IMPRESSION: 1. No acute bony or soft tissue abnormality. Electronically signed by: Davis Murcia MD 03/05/2025 03:04 PM EDT
[2025-03-05 14:42] VITALS: BP 140/90; PULSE 97; RESP 18; TEMP 36.3; O2SAT 97; BMI 40.2
--- NOTE | 2025-03-05 14:45 | ED_ITS ---
HPI - General Adult General Chief complaint: Fall Stated complaint: slip & fall in lobby Time Seen by Provider: 03/05/25 16:19 Source: patient, RN notes reviewed and old records reviewed Mode of arrival: ambulatory Limitations: no limitations History of Present Illness ED Provider: Keagan HPI narrative: [age] old female presents for evaluation of left ankle pain. Patient reports that she was leaving a doctor with the appointment when she walked into the lobby. She reports that she slipped on a wet floor and fell to the ground pain Denies hitting her head or losing consciousness. She reports that she did land on her left knee but that does not bother her Her pain is mostly to the front of the left ankle Related Data Home Medications ?Medication ?Instructions ?Recorded ?Confirmed copper 380 square mm intrauterine intrauterine 1 10/28/24 device (ParaGard T 380A) ibuprofen 800 mg tablet 800 mg PO TID 05/30/2112/10 Previous Rx's ?Medication ?Instructions ?Recorded ondansetron HCl 4 mg tablet 4 mg PO Q8H PRN nausea and 05/08/21 (Zofran) vomiting #10 tabs bisacodyl 10 mg rectal suppository 10 mg [place] DAILY PRN constipation 08/06/22 (Dulcolax (bisacodyl)) #20 ea polyethylene glycol 3350 17 17 g PO DAILY #510 grams 0 08/06/22 gram/dose oral powder (Miralax) epinephrine 0.3 mg/0.3 mL 0.3 mg (0.3 mL) IM Q4H PRN 0 10/29/24 injection, auto-injector anaphylaxis #2 ea metronidazole 500 mg tablet 500 mg PO BID 7 days #14 t abs 12/22/24 ketorolac 10 mg tablet 10 mg PO Q8H PRN pain #12 ta bs 01/30/25 levofloxacin 500 mg tablet 500 mg PO DAILY #7 tabs ondansetron 4 mg disintegrating 4 mg PO Q8H #10 tabs 0 01/30/25 tablet tamsulosin 0.4 mg capsule 0.4 mg PO DAILY #14 caps Allergies Allergy/AdvReac Type Severity Reaction Status Date / Time seafood Allergy Severe Anaphylaxis Verified 03/05/25 14:45 nitrofurantoin AdvReac Intermediate Nausea and Verified 03/05/25 14:45 Vomiting Review of Systems Musculoskeletal: Musculoskeletal: Reports arthralgias, Reports joint swelling and Reports limited range of motion [facility] Past Medical History Medical History Abnormal uterine bleeding (AUB) Diarrhea GERD (gastroesophageal reflux disease) IUD check up Pain of left thumb Annual physical exam Kidney stones Surgical History History of dilatation and curettage History of section Family History Family History Father Diabetes mellitus Mother Asthma History of blood clots Mental health disorder Maternal Grandfather No problems noted. Maternal Grandmother Breast cancer Mental health disorder Paternal Grandfather Diabetes mellitus Paternal Grandmother No problems noted. Brother No problems noted. Brother No problems noted. Brother No problems noted. Brother No problems noted. Sister No problems noted. Sister No problems noted. Sister No problems noted. Sister No problems noted. Sister No problems noted. Sister No problems noted. Son No problems noted. Social History Social History Housing: House Patient Tobacco Use Status: Never used Tobacco e-Cigarette/Vaping Use: Never Used Advance Directives: No Advance Directives Information Provided: No Current occupational status: unemployed Cognitive needs: No Hearing needs: No Vision needs: Yes Physical Exam ED Vital Signs: Vital Signs - 24 hr 03/05/25 14:42 03/05/25 16:39 Temperature 97.3 F 97.3 F Pulse Rate 97 97 Respiratory Rate 18 18 Blood Pressure 140/90 H 140/90 H Pulse Oximetry 97 97 Oxygen Delivery Method Room Air Room Air BMI result Body Mass Index 40.2 Const General: healthy appearing, comfortable, no acute distress, alert and awake Nutritional Appearance: well nourished Orientation/consciousness: patient oriented x3 HENMT Head: Yes normocephalic and Yes atraumatic Eyes Eyelids: Yes eyelids normal Conjunctivae: conjunctivae normal Sclerae: sclerae normal Corneas: corneas normal Pupils: Equal, round and reactive pupils present EOM: EOMs intact bilaterally Neck Neck: Yes full ROM Resp Effort & Inspection: normal respiratory effort, able to speak in complete sentences and not labored Skin General skin exam: elasticity normal Neuro General: patient oriented x3 Cranial nerves: Yes Equal, round and reactive pupils present and Yes Bilaterally intact EOM present Cognition (Neuro): normal cognition Extrem Other: No significant edema to the left ankle. The patient is tender in the anterior aspect of the left medial ankle. No redness or Achilles tenderness Course Course Course Narrative: RME, this is a rapid medical exam performed by Shaheed Boogie please refer to primary provider for complete H&P- 29 year old female presents for evaluation of a left ankle injury after slipping and falling just prior to arrival. Plan for x-rays Medical Decision Making Medical Decision Making MDM Narrative: [age] old female presents for evaluation of left ankle pain after a slip and fall. X-rays were ordered which did not show any fracture. The patient was offered crutches but she declines. I have a low suspicion for Achilles injury Differential Diagnosis Differential Diagnoses: The differential diagnosis associated with the presentation includes Ankle sprain Fracture Dislocation Calf strain Radiology Impression Discussion of test interpretation with radiology: I have reviewed the radiologist's reading. Radiologist Impression: FINDINGS: No fracture, dislocation, or suspicious bone lesion. Normal bone mineralization. Normal alignment. Joint spaces are preserved. Mortise is intact. The talar dome is normal. No significant arthropathy. Tiny plantar calcaneal spur. No significant ankle joint effusion. Soft tissues appear normal. XR/XR ankle LT min 3V IMPRESSION: 1. No acute bony or soft tissue abnormality. Electronically signed by: Davis Murcia MD 03/05/2025 03:04 PM EDT RP Discharge Plan Discharge Clinical Impression: Ankle sprain Patient Disposition: Home, Self-Care Instructions: Ankle Sprain (ED) Additional Instructions: Your x-ray did not show any fracture. You likely have an ankle sprain. Use ibuprofen/Tylenol for pain. Elevate the leg above your heart while resting pain Apply ice every 4 hours was in the 15 minutes Prescriptions: No Action epinephrine 0.3 mg/0.3 mL auto-injector 0.3 mg IM Q4H PRN (Reason: anaphylaxis) Qty: 2 1RF metronidazole 500 mg tablet 500 mg PO BID 7 Days Qty: 14 0RF Rx Instructions: Take with food, Avoid alcohol and vinegar products ondansetron HCl [Zofran] 4 mg tablet 4 mg PO Q8H PRN (Reason: nausea and vomiting) Qty: 10 0RF ketorolac 10 mg tablet 10 mg PO Q8H PRN (Reason: pain) Qty: 12 0RF Rx Instructions: Do not use this medication with other NSAIDs, only Tylenol if needed tamsulosin 0.4 mg capsule 0.4 mg PO DAILY Qty: 14 0RF ondansetron 4 mg tablet,disintegrating 4 mg PO Q8H Qty: 10 0RF levofloxacin 500 mg tablet 500 mg PO DAILY Qty: 7 0RF ibuprofen 800 mg tablet 800 mg PO TID ParaGard T 380A 380 square mm intrauterine device intrauterine polyethylene glycol 3350 [Miralax] 17 gram/dose powder 17 g PO DAILY Qty: 510 6RF bisacodyl [Dulcolax (bisacodyl)] 10 mg suppository 10 mg [place] DAILY PRN (Reason: constipation) Qty: 20 0RF Stand Alone Forms: Work/School Release Interventions: ED Discharge Assessment Last Done: 03/05/25 16:39 Discharge Date/Time: 03/05/25 16:40 Print Language: Filipino
[2025-03-05 16:39] VITALS: BP 140/90; PULSE 97; RESP 18; TEMP 36.3; O2SAT 97
== END 2025-03-05 16:40 | disposition home or self-care (01) ==
PROVIDERS: Emergency Provider Emergency Medicine Emergency Medical Services; PCP Internal Medicine
DX: S93.402A Sprain of unspecified ligament of left ankle, initial encounter (principal); W01.0XXA Fall on same level from slipping, tripping and stumbling without subsequent striking against object, initial encounter; Y93.9 Activity, unspecified; Y92.9 Unspecified place or not applicable; Y99.9 Unspecified external cause status; R19.7 Diarrhea, unspecified; K21.9 Gastro-esophageal reflux disease without esophagitis
CPT/HCPCS: 73610; 99282; 99283

== ENCOUNTER 2025-03-11 15:14 | Outpatient (AMB) | payer OTHER, SELFPAY ==
--- NOTE | 2025-03-11 15:15 | MHC.OFFVIS ---
Intake Visit Reasons: US follow up Compensation And Hris Analyst: Compensation And Hris Analyst Present Allergies seafood Allergy (Severe, Verified 03/11/25 15:15) Anaphylaxis nitrofurantoin Adverse Reaction (Intermediate, Verified 03/11/25 15:15) Nausea and Vomiting Is last menstrual period known: Yes Last menstrual period: 02/24/25 HPI Comments Details: Patient is here today for a follow up pelvic ultrasound, history of heavy menstrual bleeding with the ParaGard IUD. She is interested in changing from the ParaGard to the Mirena. Having irregular menses up 2 wks. at times, Last cycle was shorter w/clots. Also concerned re: itching on abdomen that is herd to pinpoint and resolve since her c/s despite using topical cream. Reviewed [id number]-[id number] topical self-help remedies available for skin irritation, follow up with PCP if symptoms do not resolve. [facility] Medical History (Updated 03/11/25 @ 16:14 by Megha Carrington CNM) Diarrhea GERD (gastroesophageal reflux disease) Pain of left thumb Annual physical exam Kidney stones Surgical History History of dilatation and curettage History of section Family History Father Diabetes mellitus Mother Asthma History of blood clots Mental health disorder Maternal Grandfather No problems noted. Maternal Grandmother Breast cancer Mental health disorder Paternal Grandfather Diabetes mellitus Paternal Grandmother No problems noted. Brother No problems noted. Brother No problems noted. Brother No problems noted. Brother No problems noted. Sister No problems noted. Sister No problems noted. Sister No problems noted. Sister No problems noted. Sister No problems noted. Sister No problems noted. Son No problems noted. Social History Housing: House Patient Tobacco Use Status: Never used Tobacco e-Cigarette/Vaping Use: Never Used Current occupational status: unemployed Cognitive needs: No Hearing needs: No Vision needs: Yes Female Reproductive History Menstrual Age of Menarche: 8 Date of last menstrual period: 02/24/25 Review of Systems Const All systems reviewed & are unremarkable except as noted in HPI and below Endo Reports no additional complaints Physical Exam Const General: cooperative, healthy appearing and no acute distress Psych Appearance: well kempt Attitude: cooperative Thought process: Normal thought process present Results Reviewed Results Reviewed: [address] [address] Ultrasound Report Signed Patient: Jayashree Lopez MR#: [id number] : 1995 Acct:[id number] Age/Sex: 29 / F ADM Date: 03/05/25 Loc: HO.US Attending Dr: Megha Carrington CNM Ordering Physician: Megha Carrington CNM Date of Service: 03/05/25 Procedure(s): US pelvic and transvaginal Accession Number(s): [id number] cc: Megha Carrington CNM~ Reason for Exam: N93.9 - Abnormal uterine and vaginal bleeding, unspecified EXAMINATION: US PELVIS CLINICAL INFORMATION: Normal vaginal bleed COMPARISON: May 14, 2022. Correlated to CT abdomen and pelvis dated January 29, 2025 TECHNIQUE: Ultrasound of the pelvis is performed using both transabdominal and transvaginal transducers along with Doppler. Transvaginal imaging is performed due to inadequate visualization transabdominally. FINDINGS: Uterus: The uterus is anteversion flexion and measures 10 x 4 x 5 cm. The endocervical canal is closed. There is an intrauterine contraceptive device within the uterine cavity and not extending into the endocervical canal. The double wall endometrial thickness is limited due to presence of intrauterine device measuring less than 3 mm. The uterus is smooth in contour and has normal myometrial echogenicity. No visible fibroid. Adnexa: The ovaries are present with flow on color Doppler interrogation.. There is no pelvic ascites or fluid collection. Right ovary measures 2 x 2 x 2 cm. Volume: 2 cc. No solid or cystic lesion. Left ovary measures 2 x 3 x 2 cm. Volume: 5 cc. No solid or cystic lesion. US/US pelvic and transvaginal IMPRESSION: Intrauterine contraceptive device in satisfactory position. No ovarian torsion. Electronically signed by: Flex Gonzalez MD 03/05/2025 02:16 PM EDT Dictated By: Flex Graff MD Signed By: <Electronically signed by Flex Gonzales MD in OV> 03/05/25 1416 DD/ 1350 TD/TT: 03/05/25 1400 Testing And Regulating Technician: Assessment & Plan Assessment & Plan (1) Menorrhagia due to intrauterine device (IUD): Code(s): T83.89XA - Other specified complication of genitourinary prosthetic devices, implants and grafts, initial encounter; N92.0 - Excessive and frequent menstruation with regular cycle Category: Medical Plan: Discussed ultrasound findings IUD in proper position. Counseled regarding exchange of IUDs from ParaGard to Mirena. Preprocedure anticipatory guidance reviewed, advised to take [id number] Tylenol or ibuprofen if no contraindications per casting room helper recommendations with food and fluid 1 hour before her appointment time. Patient to call with her next cycle for exchange. The patient expressed understanding and agreement with the plan of care. All of her questions and concerns were addressed to the best of my ability. This note is constructed using voice recognition software. While every effort has been made to ensure accuracy, fusion juncture grinder errors may have been included. Plan IMPRESSION: Intrauterine contraceptive device in satisfactory position. No ovarian torsion. Coding Level of Care Code Est Pt Level 3 (77847) Diagnoses Menorrhagia due to intrauterine device (IUD) T83.89XA; N92.0
--- OUTSIDE RECORDS SUMMARY | 2025-03-11 16:35 | XMS_ITS | Encounter Summary ---
Author Organization [facility] Address [address] [place] [address] Phone Care Team Providers Care Studio Operator Name Role Phone Lenora Jim MD Primary Care Provider Unavailabl e Encounter Details Date Type Department Care Team (Late st Contact Info) Description 01/24/2017 Conversion Encounter [address] [address] Social History Tobacco Use Types Packs/Day Years [...] on filedocumented in this encounter Care Teams Studio Operator Relationship Specialty Start Date End Date Lenora Jim MD PCP - General 01/18/17 documented as of this encounter
--- OUTSIDE RECORDS SUMMARY | 2025-03-11 16:35 | XMS_ITS | Clinical Summary ---
Author Organization [facility] Address [address] [place] [address] Phone Care Team Providers Care Lot Attendant Name Role Phone Lenora Jim MD Primary [...] complete this topic Procedures * Due to [place] state law, this organization might not be sharing sensitive test results. Procedure Name Priority Date/Time Associated Diagnosis Comments CHLAMYDIA AND GONORRHEA, AMPLIFIED Routine 08/13/2012 12:32 PM EST from Last 3 Months or Most Recently Relevant to Health Maintenance Results * Due to [place] state law, this organization might not be sharing sensitive test results. * Chlamydia and Gonorrhoea, Amplified (08/13/2012 12:32 PM EST) URINE GC AMP PROBE NEGATIVE [facility] Comment: NO NEISSERIA GONORRHOEAE RNA DETECTED IN THIS PATIENT'S SAMPLE. (REFERENCE RANGE/NORMAL VALUE: NOT DETECTED) NOTE: THIS TEST USES POLICE OFFICER BOOKING-MEDIATED AMPLIFICATION METHOD TO DETECT rRNA FROM C.TRACHOMATIS [...] OF INFECTION. URINE CHLAMYDIA AMP PROBE NEGATIVE [facility] Comment: NO CHLAMYDIA TRACHOMATIS RNA DETECTED IN THIS PATIENT'S SAMPLE. (REFERENCE RANGE/NORMAL VALUE: NOT DETECTED) 08/13/2012 12:3 2 PM EST Narrative [facility] - 08/13/2012 12:32 PM EST URINE CHLAMYDIA GC AMP PROBE us Lenora Jim MD LAB MICROBIOLOGY - GENERAL ORDER HEBER Final Result [facility] [address] [place] [address], from Last 3 Months or Most Recently Relevant to Health Maintenance Care Teams Lot Attendant Relationship Specialty Start Date End Date Lenora Jim MD PCP - General 01/18/17
--- OUTSIDE RECORDS SUMMARY | 2025-03-11 16:36 | XMS_ITS | Encounter Summary ---
Author Organization [facility] Address [address] [place] [phone] Phone Care Team Providers Care Packaging Line Operator Name Role Phone Lenora Jim MD Primary Care Provider Unavailabl e Encounter Details Date Type Department Care Team (Late st Contact Info) Description 10/28/2009 Documentation [facility] Family Medicine [address] [place] [address] Family Medicine, Physician [address] [place] [address] Social History Tobacco Use Types Packs/Day Years [...] on filedocumented in this encounter Care Teams Packaging Line Operator Relationship Specialty Start Date End Date Lenora Jim MD PCP - General 01/18/17 documented as of this encounter
== END 2025-03-11 15:37 | disposition home or self-care (01) ==
LOC: HO.HWS 15:14
PROVIDERS: PCP Internal Medicine; Visit Provider Advanced Practice Midwife
DX: T83.89XA Other specified complication of genitourinary prosthetic devices, implants and grafts, initial encounter (principal); N92.0 Excessive and frequent menstruation with regular cycle
CPT/HCPCS: 99213

== ENCOUNTER → 2025-03-11 15:14 | Outpatient (BNVA) | payer OTHER, SELFPAY | PROVIDERS: PCP Internal Medicine; Visit Provider Advanced Practice Midwife | DX: T83.89XA Other specified complication of genitourinary prosthetic devices, implants and grafts, initial encounter (principal); N92.0 Excessive and frequent menstruation with regular cycle | CPT/HCPCS: 99212 ==

== ENCOUNTER 2025-03-29 08:53 | Outpatient (REF) | payer OTHER, SELFPAY | END 2025-03-29 08:54 | disposition home or self-care (01) | LOC: HO.LAB 08:53 | PROVIDERS: Visit Provider Nurse Practitioner Family | DX: N20.0 Calculus of kidney (principal); N39.0 Urinary tract infection, site not specified | CPT/HCPCS: 51798; 81003; 87086; 99202 ==

== ENCOUNTER 2025-03-29 08:53 | Outpatient (AMB) | payer OTHER, SELFPAY ==
--- NOTE | 2025-03-29 08:56 | MHC.OFFVIS ---
Intake Visit Reasons: kidney stones Intake Note: patient presents today for: new pt kidney stones urology medications: tamsulosin blood thinners: none CT done: 01/30/25 smoker: no today's PVR: 126mls Stitchdowns Toe Former Required: No Accompanied by: Self / Same As Patient Allergies seafood Allergy (Severe, Verified 03/29/25 10:09) Anaphylaxis nitrofurantoin Adverse Reaction (Intermediate, Verified 03/29/25 10:09) Nausea and Vomiting Medication List - Last Reconciled 03/29/25 by EWA Greene- bisacodyl (Dulcolax (bisacodyl)) 10 mg [place] DAILY PRN copper (ParaGard T 380A) intrauterine epinephrine 0.3 mg (0.3 mL) IM Q4H PRN ibuprofen 800 mg PO TID ketorolac 10 mg PO Q8H PRN levofloxacin 500 mg PO DAILY metronidazole 500 mg PO BID 7 days ondansetron 4 mg PO Q8H ondansetron HCl (Zofran) 4 mg PO Q8H PRN polyethylene glycol 3350 (Miralax) 17 grams PO DAILY tamsulosin 0.4 mg PO DAILY HPI Comments Details: Jayashree is a pleasant 29-year-old female patient. She has a past medical history of GERD and nephrolithiasis. She presents to the office today as a new patient for nephrolithiasis. In discussion with the patient today she reports having seeked emergency room care approximately 2 months ago for left-sided abdominal pain that was radiating towards her flank area associated with nausea and vomiting. She reports being diagnosed with nephrolithiasis and recommendations were made for urology referral for further assessment evaluation. In review of patient's chart it appears CT 02/01 noted obstructive 2 mm stone at the left UVJ resulting in mild left hydroureteronephrosis and delayed nephrogram. She reports pain she had been experiencing has since subsided. When asked she does report a longstanding history of nephrolithiasis many years ago however never requiring surgical intervention. She also reports a longstanding history of recurrent urinary tract infections that typically occur right after her menses. She also reports a history of urinary urgency and frequency. In office urinalysis results reviewed with the patient today. We did discussed potential causes of nephrolithiasis, recurrent urinary tract infections as well as lower urinary tract symptoms. We discussed further treatment options and risks and benefits of these treatment options. All questions were answered. She otherwise offers no other issues or concerns at this time. [facility] Medical History (Updated 03/29/25 @ 10:07 by LIZ Greene) Diarrhea GERD (gastroesophageal reflux disease) Pain of left thumb Annual physical exam Kidney stones Surgical History History of dilatation and curettage History of section Family History Father Diabetes mellitus Mother Asthma History of blood clots Mental health disorder Maternal Grandfather No problems noted. Maternal Grandmother Breast cancer Mental health disorder Paternal Grandfather Diabetes mellitus Paternal Grandmother No problems noted. Brother No problems noted. Brother No problems noted. Brother No problems noted. Brother No problems noted. Sister No problems noted. Sister No problems noted. Sister No problems noted. Sister No problems noted. Sister No problems noted. Sister No problems noted. Son No problems noted. Social History Housing: House Patient Tobacco Use Status: Never used Tobacco e-Cigarette/Vaping Use: Never Used Current occupational status: unemployed Cognitive needs: No Hearing needs: No Vision needs: Yes Female Reproductive History Menstrual Age of Menarche: 8 Review of Systems Const All systems reviewed & are unremarkable except as noted in HPI and below Physical Exam Const General: cooperative, healthy appearing, comfortable, no acute distress, well developed, alert and awake Orientation/consciousness: patient oriented x3 Limitations: no limitations HEENT Head: Yes normal to inspection, Yes normocephalic and Yes atraumatic Ears: hearing grossly normal bilaterally Eyes General: appearance normal, both eyes and all related structures Neck Neck: Yes normal visual inspection and Yes trachea midline Chest Chest palpation & inspection: normal inspection of the chest Resp Effort & Inspection: normal respiratory effort and able to speak in complete sentences Cardio Rate: regular rate GI Inspection: Yes normal to inspection General: Yes no CVA tenderness Back/Spine/Pelvis Back: no CVA tenderness Skin General skin exam: no rashes or lesions noted Neuro General: patient oriented x3 Extrem General: Yes normal to inspection Psych Appearance: grossly normal and well kempt Mental Status: mental status grossly normal Speech and movement: Normal speech and movement present and Clear speech present Affect: normal affect Attitude: cooperative Thought process: Normal thought process present Thought content: Normal thought content present Insight: Fair insight present (Psych) Judgement: Fair judgement present (Psych) Office Procedures Post Void Residual Post Residual Void Post Void Residual (PVR): 126 85644-Lxdy Void Residual by ultrasound Results AMB Urinalysis, Automated UA Leukoctes 0 Min/uL Last Edit by RYAN Figueroa on 03/29/25 13:11 UA Nitrite Last Edit by RYAN Figueroa on 03/29/25 13:11 UA Urobilinogen 0.2 mg/dL Last Edit by Nannette Azul CCM on 03/29/25 13:11 UA Protein 30 mg/dL Last Edit by RYAN Figueroa on 03/29/25 13:11 UA pH 5.5 Last Edit by Nannette Azul CCM on 03/29/25 13:11 UA Blood 200 Janak/uL Last Edit by Nannette Azul CCM on 03/29/25 13:11 UA Specific [place] 1.025 Last Edit by RYAN Figueroa on 03/29/25 13:11 UA Ketone Last Edit by RYAN Figueroa on 03/29/25 13:11 UA Bilirubin 0 mg/dL Last Edit by RYAN Figueroa on 03/29/25 13:11 UA Glucose 0 mg/dL Last Edit by Nannette Azul CCM on 03/29/25 13:11 Results Reviewed Results Reviewed: Laboratory Last Values Urine pH (Auto) 5.5 03/29/25 13:10 Specific [place] (Auto) 1.025 03/29/25 13:10 Urine Protein (Auto) 30 mg/dL 03/29/25 13:10 Glucose (UA)(Auto) 0 mg/dL 03/29/25 13:10 Urine Blood (Auto) 200 Janak/uL 03/29/25 13:10 Urine Bilirubin (Auto) 0 mg/dL 03/29/25 13:10 Urine Urobilinogen (Auto) 0.2 mg/dL 03/29/25 13:10 Leukocyte Esterase (Auto) 0 Min/uL 03/29/25 13:10 Date of Service: 01/29/25 Procedure(s): CT abdomen pelvis w IV con Findings: No consolidation or effusion. There is enlargement of the left kidney with delayed nephrogram and mild hydronephrosis. Mild enlargement of the left ureter is present and there is a 2 mm stone at the left ureterovesical junction. No hydronephrosis of the right kidney. Diffuse fatty infiltration of the liver is present. Liver is enlarged. There is a low-attenuation subcentimeter lesion in the lower pole of the left kidney, likely cyst but too small to fully characterize. Spleen, adrenal glands, and pancreas are normal. Gallbladder is normal. No bowel obstruction, pneumoperitoneum, or pneumatosis. Normal appendix. There is an IUD within the uterus in expected position. The bones are intact. IMPRESSION: Obstructive 2 mm stone at the left ureterovesical junction resulting in mild left hydroureteronephrosis and delayed nephrogram. Assessment & Plan Assessment & Plan (1) Kidney stones: Comment: 12/19 Code(s): N20.0 - Calculus of kidney Category: Medical (2) Urinary frequency: Code(s): R35.0 - Frequency of micturition Category: Medical Plan In office urinalysis results reviewed with the patient today; as noted above; will send for urine culture; will await results for potential treatment PVR [address] results reviewed with the patient today; as noted above. We discussed at length potential causes of nephrolithiasis as well as lower urinary tract symptoms We discussed the importance of adequate hydration relation to nephrolithiasis as well as overall health and well-being. We discussed adding 1 oz of lemon juice to water daily. Discussed UTI prevention with D mannose supplement, vitamin-C, increasing fluid intake, behavioral therapy with timed voiding, perineal hygiene and postcoital voiding, and management of constipation with stool softeners and increased fiber intake. All questions were answered Will obtain retroperitoneal ultrasound for further assessment evaluation. Follow-up in 1-3 months with imaging to be completed prior; or sooner with any issues, concerns, and or questions. Orders: Orders US retroperitoneal comp Today N20.0 - Calculus of kidney AMB Post Void Residual by ultrasound Today N20.0 - Calculus of kidney Urine Culture Today N39.0 - Urinary tract infection, site not specified AMB Urinalysis Automated Today Z13.9 - Encounter for screening, unspecified Patient Instructions: The patient had an opportunity to ask questions regarding the treatment plan. All questions were answered. Physical exam, labs, and imaging were discussed and reviewed in detail. As well as risks, benefits, and discussion of treatment choices. No major barriers to understanding were identified. The patient expressed understanding and agreement with the above treatment plan. The patient was made aware they should contact our office by phone for worsening of their current condition, the appearance of new symptoms, or with any questions or concerns. Compliance is encouraged with any medications and follow up testing that is ordered. It is a privilege to be allowed the opportunity to participate in? your urological care.? Again, if you have any questions or concerns If you have any questions or concerns please do not hesitate to contact me. The office is [phone]. This note is constructed using voice recognition software. While every effort has been made to ensure accuracy large sheetfed press operator errors may have been included. Yours sincerely, LIZ Greene Coding Level of Care Code New Pt Level 3 (99438) Diagnoses Kidney stones N20.0 Urinary frequency R35.0 CPT Codes Post Residual Void - PVR CPT Code: 73295-Cnlv Void Residual by ultrasound ([id number])
== END 2025-03-29 09:50 | disposition home or self-care (01) ==
LOC: HO.HUSH 08:54
PROVIDERS: Visit Provider Nurse Practitioner Family
DX: N20.0 Calculus of kidney (principal); R35.0 Frequency of micturition; Z13.9 Encounter for screening, unspecified
CPT/HCPCS: 99203

== ENCOUNTER 2025-04-01 10:36 | Outpatient (AMB) | payer OTHER, SELFPAY ==
--- NOTE | 2025-04-01 10:37 | MHC.OFFVIS ---
Vital Signs 04/01/25 10:38 Height 5 ft 1 in Weight 213 lb BMI 40.2 BP 110/70 Intake Visit Reasons: Paragard removal/Mirena insertion Ramp Flight Attendant: Ramp Flight Attendant Present (Divya) Allergies seafood Allergy (Severe, Verified 04/01/25 10:37) Anaphylaxis nitrofurantoin Adverse Reaction (Intermediate, Verified 04/01/25 10:37) Nausea and Vomiting Is last menstrual period known: Yes Last menstrual period: 03/26/25 HPI Comments Details: Patient is here today for a IUD exchange. History of AUB with the ParaGard, changing to the Mirena IUD. [facility] Medical History (Updated 04/01/25 @ 11:43 by Megha Carrington CNM) IUD (intrauterine device) in place IUD surveillance Diarrhea GERD (gastroesophageal reflux disease) Pain of left thumb Annual physical exam Kidney stones Surgical History History of dilatation and curettage History of section Family History Father Diabetes mellitus Mother Asthma History of blood clots Mental health disorder Maternal Grandfather No problems noted. Maternal Grandmother Breast cancer Mental health disorder Paternal Grandfather Diabetes mellitus Paternal Grandmother No problems noted. Brother No problems noted. Brother No problems noted. Brother No problems noted. Brother No problems noted. Sister No problems noted. Sister No problems noted. Sister No problems noted. Sister No problems noted. Sister No problems noted. Sister No problems noted. Son No problems noted. Social History Housing: House Patient Tobacco Use Status: Never used Tobacco e-Cigarette/Vaping Use: Never Used Current occupational status: unemployed Cognitive needs: No Hearing needs: No Vision needs: Yes Female Reproductive History Menstrual Age of Menarche: 8 Date of last menstrual period: 03/26/25 Physical Exam Vital Signs: Last Vital Signs BP 110/70 04/01/25 10:38 BMI result Body Mass Index 40.2 Office Procedures IUD Insert/Removal Details Details: The patient is here today for a ParaGard IUD removal/ Mirena reinsertion. She was counseled on the side effects including: menstrual cycle changes, pain, infection, bleeding, or expulsion. A urine test was completed and was negative. She was consented for the IUD insertion and has signed the consent form. All questions were answered. The patient was placed in the dorsal lithotomy position. A speculum was inserted vaginally and the cervix and strings were visualized at the os. The cervix and vagina were cleansed with Betadine. A ring forcep was utilized, and the patient was asked to give a deep cough while the strings were grasped and gently tugged at the same time, removing the IUD device intact. A single toothed tenaculum was applied to the cervix for stabilization, and the uterus was sounded to 9 cm. The device was inserted and released with a gentle motion. Bleeding from the tenaculum sites and the procedure were minimal, Monsel's applied to cervix on left side tenaculum site due to oozing following direct pressure. The strings were trimmed to 3cm. All of the equipment was removed and the bimanual was normal, no tip was palpable at the cervical os. The patient experienced persistent right-sided pain after the insertion and was sent to the radiology department for a stat ultrasound to confirm positioning. Post IUD Insertion Care: There may be some post insertion bleeding for several days that is usually light and can turn to a light brown or pink in color. Mild cramping may occur. Nothing in the vagina including: tampons, douching or intimacy for several days. You may take an over the counter mild analgesia like Tylenol or Advil (if no allergies), per the manufacturers recommendations on dosing and frequency. Follow the directions completely. Call the office if any: fever (over 100.4), flu like symptoms, abdominal pain, worsening cramping not resolved with over the counter medications, foul smelling vaginal odor, signs of infected appearing discharge, or heavy bleeding. Use a condom for a back up method if indicated for 7 days. Always use a condom for STI prevention; IUD's are not protective against STD's. Return to the office in 4-6 weeks for IUD recheck. This note is constructed using voice recognition software. While every effort has been made to ensure accuracy, lead architect errors may have been included. 41027-YBB Insertion 72174-ETS Removal Procedure code (CPT) selection complete IUD Insert/Removal Details Details: See notes above 46634-HWT Removal Procedure code (CPT) selection complete Office Meds Mirena 21 mcg/24 hr (up to 8 years) 52 mg intrauterine device Performing Provider: Megha Carrington CNM Performing Location: [facility] [place] [facility] Administered by: MARCE Beauchamp on 04/01/25 11:30 Dose Route Admin Location Dispensed Lot Number Expiration Date ND Terminal Makeup Operator 1 device intrauterine 1 device [id number] 05/09/27 [id number] [employer] Total Dispensed Waste 1 device 0 % Results AMB Test Urine AMB Test Urine Negative Last Edit by MARCE Beauchamp on 04/01/25 10:53 Results Reviewed Results Reviewed: Laboratory Last Values Tst Clinic Negative 04/01/25 10:53 [place] [address] Ultrasound Report Signed Patient: Jayashree Lopez MR#: [id number] : 1995 Acct:[id number] Age/Sex: 29 / F ADM Date: 04/01/25 Loc: HO.US Attending Dr: Megha Carrington CNM Ordering Physician: Megha Carrington CNM Date of Service: 04/01/25 Procedure(s): US pelvic and transvaginal Accession Number(s): [id number] cc: Radha Dobbs MD; Megha Carrington CNM~ Reason for Exam: R10.2 - Pelvic and perineal pain EXAMINATION: US PELVIS TRANSABDOMINAL AND TRANSVAGINAL HISTORY: R10.2 - Pelvic and perineal pain COMPARISON: Comparison is made with the prior examination dated 03/05/2025. TECHNIQUE: Transabdominal and endovaginal real-time 2D chaves-scale ultrasound was performed. FINDINGS: Uterus: The uterus is normal in size, measuring 8.0 x 3.9 x 5.4 cm. Myometrium has a normal echotexture. No fibroids are identified. Endometrium: The endometrial stripe is obscured by an IUD which appears in appropriate position in the endometrial cavity. Right ovary: The right ovary measures 2.8 x 2.3 x 1.5 cm. The right ovary is normal in size and echotexture. Left ovary: The left ovary measures 2.3 x 1.9 x 1.4 cm. The left ovary is normal in size and echotexture. Pelvic fluid: none. US/US pelvic and transvaginal IMPRESSION: IUD in appropriate position in the endometrial cavity. Electronically signed by: Emigdio Link MD 04/01/2025 03:26 PM EDT RP Dictated By: Emigdio Link MD Signed By: <Electronically signed by Emigdio Link MD in OV> 04/01/25 1526 DD/ 1451 Assessment & Plan Assessment & Plan (1) Encounter for IUD removal and reinsertion: Code(s): Z30.433 - Encounter for removal and reinsertion of intrauterine contraceptive device Plan: IUD procedure completed for removal and reinsertion, see procedure notes. (2) Pelvic pain: Code(s): R10.2 - Pelvic and perineal pain Category: Medical Plan Due to the degree of pelvic pain experienced with insertion a stat IUD ultrasound check was provided, results-IMPRESSION: IUD in appropriate position in the endometrial cavity, patient was notified of ultrasound results. Total time I personally spent on visit and management today: ?20 minutes. Time spent included review of pertinent office notes in the electronic health record; review of laboratory and imaging results; review of personal family medical history; performing physical exam; discussing diagnosis and plan of care with the patient; documenting the encounter in the EMR. Orders: Orders AMB HCG Urine Test Today Z32.02 - Encounter for test, result negative AMB IUD Insertion/Removal - Practice Supplied Today Z01.419 - Encounter for gynecological examination (general) (routine) without abnormal findings US pelvic and transvaginal Today R10.2 - Pelvic and perineal pain, Z30.431 - Encounter for routine checking of intrauterine contraceptive device Coding Level of Care Code Est Pt Level 2 (26982) Procedure Only Diagnoses Encounter for IUD removal and reinsertion Z30.433 Pelvic pain R10.2 CPT Codes Details - CPT: 83493-PMT Insertion ([id number]) Details - CPT: 82162-TIO Removal ([id number]) Details - CPT: 14931-ENI Removal ([id number]) Comment see additional coding
[2025-04-01 10:38] VITALS: BP 110/70; BMI 40.2
--- OUTSIDE RECORDS SUMMARY | 2025-04-01 12:49 | XMS_ITS | Clinical Summary ---
Author Organization [facility] Address [address] [place] [phone] Phone Care Team Providers Care Machine Made Shoe Unit Worker Name Role Phone Lenora Jim MD Primary [...] complete this topic Procedures * Due to [place] state law, this organization might not be sharing sensitive test results. Procedure Name Priority Date/Time Associated Diagnosis Comments CHLAMYDIA AND GONORRHEA, AMPLIFIED Routine 08/13/2012 12:32 PM EST from Last 3 Months or Most Recently Relevant to Health Maintenance Results * Due to [place] state law, this organization might not be sharing sensitive test results. * Chlamydia and Gonorrhoea, Amplified (08/13/2012 12:32 PM EST) URINE GC AMP PROBE NEGATIVE [facility] Comment: NO NEISSERIA GONORRHOEAE RNA DETECTED IN THIS PATIENT'S SAMPLE. (REFERENCE RANGE/NORMAL VALUE: NOT DETECTED) NOTE: THIS TEST USES MOBILE ENGINEER-MEDIATED AMPLIFICATION METHOD TO DETECT rRNA FROM C.TRACHOMATIS [...] OF INFECTION. URINE CHLAMYDIA AMP PROBE NEGATIVE [facility] Comment: NO CHLAMYDIA TRACHOMATIS RNA DETECTED IN THIS PATIENT'S SAMPLE. (REFERENCE RANGE/NORMAL VALUE: NOT DETECTED) 08/13/2012 12:3 2 PM EST Narrative [facility] - 08/13/2012 12:32 PM EST URINE CHLAMYDIA GC AMP PROBE us Lenora Jim MD LAB MICROBIOLOGY - GENERAL ORDER HEBER Final Result [facility] [address] [place] [address], from Last 3 Months or Most Recently Relevant to Health Maintenance Care Teams Machine Made Shoe Unit Worker Relationship Specialty Start Date End Date Lenora Jim MD PCP - General 01/18/17
--- OUTSIDE RECORDS SUMMARY | 2025-04-01 12:49 | XMS_ITS | Encounter Summary ---
Author Organization [facility] Address [address] [place] [phone] Phone Care Team Providers Care Trial Mgr Name Role Phone Lenora Jim MD Primary Care Provider Unavailabl e Encounter Details Date Type Department Care Team (Late st Contact Info) Description 10/28/2009 Documentation [facility] [place] Family Medicine [address] [place] [address] Family Medicine, Physician [address] [place] [address] Social History Tobacco Use Types Packs/Day Years [...] on filedocumented in this encounter Care Teams Trial Mgr Relationship Specialty Start Date End Date Lenora Jim MD PCP - General 01/18/17 documented as of this encounter
--- OUTSIDE RECORDS SUMMARY | 2025-04-01 12:49 | XMS_ITS | Encounter Summary ---
Author Organization [facility] Address [address] [place] [address] Phone Care Team Providers Care Clinical Neuropsychologist Name Role Phone Lenora Jim MD Primary Care Provider Unavailabl e Encounter Details Date Type Department Care Team (Late st Contact Info) Description 01/24/2017 Conversion Encounter [address] [address] Social History Tobacco Use Types Packs/Day Years [...] on filedocumented in this encounter Care Teams Clinical Neuropsychologist Relationship Specialty Start Date End Date Lenora Jim MD PCP - General 01/18/17 documented as of this encounter
== END 2025-04-01 14:35 | disposition home or self-care (01) ==
LOC: HO.HWS 10:36
PROVIDERS: PCP Internal Medicine; Visit Provider Advanced Practice Midwife
DX: Z30.433 Encounter for removal and reinsertion of intrauterine contraceptive device (principal); R10.21 Pelvic and perineal pain right side; Z32.02 Encounter for pregnancy test, result negative
CPT/HCPCS: 58300; 58301; 99212

== ENCOUNTER 2025-04-01 12:08 | Outpatient (REF) | payer OTHER, SELFPAY ==
--- NOTE | ~2025-04-01 | US_ITS ---
EXAMINATION: US PELVIS TRANSABDOMINAL AND TRANSVAGINAL HISTORY: R10.2 - Pelvic and perineal pain COMPARISON: Comparison is made with the prior examination dated 03/05/2025. TECHNIQUE: Transabdominal and endovaginal real-time 2D chaves-scale ultrasound was performed. FINDINGS: Uterus: The uterus is normal in size, measuring 8.0 x 3.9 x 5.4 cm. Myometrium has a normal echotexture. No fibroids are identified. Endometrium: The endometrial stripe is obscured by an IUD which appears in appropriate position in the endometrial cavity. Right ovary: The right ovary measures 2.8 x 2.3 x 1.5 cm. The right ovary is normal in size and echotexture. Left ovary: The left ovary measures 2.3 x 1.9 x 1.4 cm. The left ovary is normal in size and echotexture. Pelvic fluid: none. US/US pelvic and transvaginal IMPRESSION: IUD in appropriate position in the endometrial cavity. Electronically signed by: Emigdio Link MD 04/01/2025 03:26 PM EDT
== END 2025-04-01 12:09 | disposition home or self-care (01) ==
LOC: HO.US 12:08
PROVIDERS: PCP Internal Medicine; Visit Provider Advanced Practice Midwife
DX: Z30.433 Encounter for removal and reinsertion of intrauterine contraceptive device (principal); R10.20 Pelvic and perineal pain unspecified side; Z32.02 Encounter for pregnancy test, result negative
CPT/HCPCS: 58300; 58301; 76830; 76856; 81025; 99212; J7298

== ENCOUNTER → 2025-04-01 12:11 | Outpatient (BNV) | payer OTHER, SELFPAY | PROVIDERS: PCP Internal Medicine; Visit Provider Radiology Diagnostic Radiology | DX: R10.20 Pelvic and perineal pain unspecified side (principal) | CPT/HCPCS: 76856 ==

== ENCOUNTER 2025-04-13 10:51 | Outpatient (REF) | payer OTHER, SELFPAY ==
[2025-04-16 10:53] LABS: TS Negative Control Passed; TS Panel A 0; TS Panel B 0; TS Positive Control Passed; TSpotTB Negative (Negative)
== END 2025-04-13 10:52 | disposition home or self-care (01) ==
LOC: HO.HMGCLDS 10:51
PROVIDERS: PCP Internal Medicine; Visit Provider Internal Medicine
DX: Z11.1 Encounter for screening for respiratory tuberculosis (principal)
CPT/HCPCS: 36415; 86481

== ENCOUNTER 2025-04-27 09:03 | Outpatient (REF) | payer OTHER, SELFPAY ==
[2025-04-27 16:51] LABS: Bacterial Vaginosis PCR POSITIVE (Negative); Candida Group PCR NOT DETECTED (Not Detect); Candida glab krusei PCR NOT DETECTED (Not Detect); Trichomonas vaginalis PCR NOT DETECTED (Not Detect)
== END 2025-04-27 09:04 | disposition home or self-care (01) ==
LOC: HO.LNP 09:03
PROVIDERS: PCP Internal Medicine; Visit Provider Advanced Practice Midwife
DX: Z30.431 Encounter for routine checking of intrauterine contraceptive device (principal); Z32.02 Encounter for pregnancy test, result negative; R10.20 Pelvic and perineal pain unspecified side; T83.32XA Displacement of intrauterine contraceptive device, initial encounter
CPT/HCPCS: 81515; 99212

== ENCOUNTER 2025-04-27 09:03 | Outpatient (AMB) | payer OTHER, SELFPAY ==
[2025-04-27 09:04] VITALS: BP 120/62; BMI 41.6
--- NOTE | 2025-04-27 09:04 | A.OFFVIS_ITS ---
Vital Signs 04/27/25 09:04 Height 5 ft 1 in Weight 220 lb BMI 41.6 BP 120/62 Blood Pressure Location Rt brachial Position Sitting Intake Visit Reasons: IUD Check Intake Note: pt feeling pulling sensation Perinatology Physician Required: No Allergies seafood Allergy (Severe, Verified 04/27/25 09:23) Anaphylaxis nitrofurantoin Adverse Reaction (Intermediate, Verified 04/27/25 09:23) Nausea and Vomiting Medication List - Last Reconciled 04/27/25 by Gely Paula LPN bisacodyl (Dulcolax (bisacodyl)) 10 mg MN DAILY PRN copper (ParaGard T 380A) intrauterine epinephrine 0.3 mg (0.3 mL) IM Q4H PRN ibuprofen 800 mg PO TID omeprazole 20 mg PO DAILY ondansetron 4 mg PO Q8H Is last menstrual period known: No Post menopausal: No Patient : No Do you need a note to return to daycare/school/sports/work: No HPI Comments Details: Patient is here today for a post IUD insertion check. She reports cramping and right-sided discomfort that has been improving since insertion approximately a month ago. Ultrasound 04/01/2025-IUD for post insertion pain on her right side, the IUD was positioned properly. UPT is negative today. [facility] Medical History IUD strings lost IUD (intrauterine device) in place IUD surveillance Diarrhea GERD (gastroesophageal reflux disease) Pain of left thumb Annual physical exam Kidney stones Surgical History History of dilatation and curettage History of section Family History Father Diabetes mellitus Mother Asthma History of blood clots Mental health disorder Maternal Grandfather No problems noted. Maternal Grandmother Breast cancer Mental health disorder Paternal Grandfather Diabetes mellitus Paternal Grandmother No problems noted. Brother No problems noted. Brother No problems noted. Brother No problems noted. Brother No problems noted. Sister No problems noted. Sister No problems noted. Sister No problems noted. Sister No problems noted. Sister No problems noted. Sister No problems noted. Son No problems noted. Social History Housing: House Patient Tobacco Use Status: Never used Tobacco e-Cigarette/Vaping Use: Never Used Current occupational status: unemployed Cognitive needs: No Hearing needs: No Vision needs: Yes Female Reproductive History Menstrual Age of Menarche: 8 Review of Systems Const All systems reviewed & are unremarkable except as noted in HPI and below Physical Exam Vital Signs: Last Vital Signs BP 120/62 04/27/25 09:04 BMI result Body Mass Index 41.6 Const General: cooperative, healthy appearing and no acute distress Orientation/consciousness: patient oriented x3 GI Inspection: Yes normal to inspection Palpation (GI): Soft to palpation and Other GI palpation findings present (Nontender) Rectal Exam - Female: visual inspection normal General: Yes bladder normal to palpation External Female Exam: normal appearance of the urethra Speculum Exam - Vagina: normal appearance of the vagina, normal palpation and normal vaginal discharge Speculum Exam - Cervix: normal appearance of the cervix, normal palpation and Other cervical findings present (IUD strings not found) Bimanual exam- vagina & uterus: normal bimanual exam, normal palpation, uterine size normal, bladder normal to palpation, normal palpation, uterine shape normal and non-tender Bimanual Exam- Adnexa, other: normal adnexae Neuro General: patient oriented x3 Results AMB Test Urine AMB Test Urine Negative Last Edit by Gely Paula LPN on 04/27/25 09:29 Results Reviewed Results Reviewed: Laboratory Last Values Tst Clinic Negative 04/27/25 09:29 [place] [address] Ultrasound Report Signed Patient: Jayashree Lopez MR#: [id number] : 1995 Acct:[id number] Age/Sex: 29 / F ADM Date: 04/01/25 Loc: HO.US Attending Dr: Megha Carrington CNM Ordering Physician: Megha Carrington CNM Date of Service: 04/01/25 Procedure(s): US pelvic and transvaginal Accession Number(s): [id number] cc: Radha Dobbs MD; Megha Carrington CNM~ Reason for Exam: R10.2 - Pelvic and perineal pain EXAMINATION: US PELVIS TRANSABDOMINAL AND TRANSVAGINAL HISTORY: R10.2 - Pelvic and perineal pain COMPARISON: Comparison is made with the prior examination dated 03/05/2025. TECHNIQUE: Transabdominal and endovaginal real-time 2D chaves-scale ultrasound was performed. FINDINGS: Uterus: The uterus is normal in size, measuring 8.0 x 3.9 x 5.4 cm. Myometrium has a normal echotexture. No fibroids are identified. Endometrium: The endometrial stripe is obscured by an IUD which appears in appropriate position in the endometrial cavity. Right ovary: The right ovary measures 2.8 x 2.3 x 1.5 cm. The right ovary is normal in size and echotexture. Left ovary: The left ovary measures 2.3 x 1.9 x 1.4 cm. The left ovary is normal in size and echotexture. Pelvic fluid: none. US/US pelvic and transvaginal IMPRESSION: IUD in appropriate position in the endometrial cavity. Electronically signed by: Emigdio Link MD 04/01/2025 03:26 PM EDT RP Dictated By: Emigdio Link MD Signed By: <Electronically signed by Emigdio Link MD in OV> 04/01/25 1526 DD/ 1451 TD/TT: 04/01/25 1510 Oracle R12 Developer: Assessment & Plan Assessment & Plan (1) IUD strings lost: Code(s): T83.32XA - Displacement of intrauterine contraceptive device, initial encounter Category: Medical Qualifiers: Encounter type: initial encounter Qualified Code(s): T83.32XA - Displacement of intrauterine contraceptive device, initial encounter Plan Discussed: Findings of IUD strings missing today recommended a repeat ultrasound due examined the position of the IUD to rule out displacement. Follow up pending results. The patient expressed understanding and agreement with the plan of care. All of her questions and concerns were addressed to the best of my ability. This note is constructed using voice recognition software. While every effort has been made to ensure accuracy, rehab tech errors may have been included. Orders: Orders Bacterial Vaginosis Panel Today R10.2 - Pelvic and perineal pain US pelvic and transvaginal Today T83.32XA - Displacement of intrauterine contraceptive device, initial encounter Coding Level of Care Code Est Pt Level 3 (76434) Diagnoses Intrauterine contraceptive device threads lost, initial encounter T83.32XA Encounter type: initial encounter
== END 2025-04-27 10:11 | disposition home or self-care (01) ==
LOC: HO.HWS 09:03
PROVIDERS: PCP Internal Medicine; Visit Provider Advanced Practice Midwife
DX: T83.32XA Displacement of intrauterine contraceptive device, initial encounter (principal)
CPT/HCPCS: 99213

== ENCOUNTER 2025-05-04 14:14 | Outpatient (REF) | payer OTHER, SELFPAY ==
--- NOTE | ~2025-05-04 | US_ITS ---
EXAMINATION: US PELVIS, COMPLETE CLINICAL INFORMATION: T83.32XA - Displacement of intrauterine contraceptive device, initial en... COMPARISON: Ultrasound 04/01/2025 TECHNIQUE: Transabdominal and transvaginal imaging was performed. FINDINGS: LMP: 05/04/2025 Uterus is anteverted and anteflexed , measuring 8.1 x 3.9 x 5.5 cm. No focal uterine lesion. Endometrial thickness 0.3 cm. Endometrium is partially visualized, partially obscured by the IUD.. There is an IUD present, which appears in appropriate position in the endometrial cavity. Right ovary measures 1.7 x 1.2 x 1.3 cm. Volume 1.4 mL. Left ovary measures 1.8 x 1.6 x 1.7 cm. Volume 2.4 mL. Bilateral ovaries are normal in size and echotexture. No free fluid in the cul-de-sac. US/US pelvic and transvaginal IMPRESSION: IUD appears in appropriate position in the endometrial cavity. Electronically signed by: Yaakov Colunga MD 05/04/2025 03:18 PM [facility]
--- OUTSIDE RECORDS SUMMARY | 2025-05-04 18:07 | XMS_ITS | Clinical Summary ---
Author Organization [facility] Address [address] [place] [phone] Phone Care Team Providers Care Concrete Mixing Plant Superintendent Name Role Phone Lenora Jim MD Primary [...] PM EST) URINE GC AMP PROBE NEGATIVE [facility] Comment: NO NEISSERIA GONORRHOEAE RNA DETECTED IN THIS PATIENT'S SAMPLE. (REFERENCE RANGE/NORMAL VALUE: NOT DETECTED) NOTE: THIS TEST USES JAVA PORTAL DEVELOPER-MEDIATED AMPLIFICATION METHOD TO DETECT rRNA FROM C.TRACHOMATIS [...] OF INFECTION. URINE CHLAMYDIA AMP PROBE NEGATIVE [facility] Comment: NO CHLAMYDIA TRACHOMATIS RNA DETECTED IN THIS PATIENT'S SAMPLE. (REFERENCE RANGE/NORMAL VALUE: NOT DETECTED) 08/13/2012 12:3 2 PM EST Narrative [facility] - 08/13/2012 12:32 PM EST URINE CHLAMYDIA GC AMP PROBE us Lenora Jim MD LAB MICROBIOLOGY - GENERAL ORDER HEBER Final Result [facility] [address] [place] [address], from Last 3 Months or Most Recently Relevant to Health Maintenance Care Teams Concrete Mixing Plant Superintendent Relationship Specialty Start Date End Date Lenora Jim MD PCP - General 01/18/17
--- OUTSIDE RECORDS SUMMARY | 2025-05-04 18:07 | XMS_ITS | Encounter Summary ---
Author Organization [facility] Address [address] [place] [phone] Phone Care Team Providers Care Hops Farmworker Name Role Phone Lenora Jim MD Primary Care Provider Unavailabl e Encounter Details Date Type Department Care Team (Late st Contact Info) Description 01/24/2017 Conversion Encounter [address] [address] Social History Tobacco Use Types Packs/Day Years [...] on filedocumented in this encounter Care Teams Hops Farmworker Relationship Specialty Start Date End Date Lenora Jim MD PCP - General 01/18/17 documented as of this encounter
--- OUTSIDE RECORDS SUMMARY | 2025-05-04 18:07 | XMS_ITS | Encounter Summary ---
Author Organization [facility] Address [address] [place] [phone] Phone Care Team Providers Care Medical Or Surgical Instrument Maker Name Role Phone Lenora Jim MD Primary Care Provider Unavailabl e Encounter Details Date Type Department Care Team (Late st Contact Info) Description 10/28/2009 Documentation [facility] [place] Family Medicine [address] [place] [address] Family Medicine, Physician [address] [place] [address] Social History Tobacco Use Types Packs/Day Years [...] on filedocumented in this encounter Care Teams Medical Or Surgical Instrument Maker Relationship Specialty Start Date End Date Lenora Jim MD PCP - General 01/18/17 documented as of this encounter
== END 2025-05-04 14:15 | disposition home or self-care (01) ==
LOC: HO.US 14:14
PROVIDERS: PCP Internal Medicine; Visit Provider Advanced Practice Midwife
DX: T83.32XA Displacement of intrauterine contraceptive device, initial encounter (principal)
CPT/HCPCS: 76830; 76856

== ENCOUNTER 2025-05-13 11:58 | Outpatient (AMB) | payer OTHER, SELFPAY ==
--- NOTE | 2025-05-13 12:44 | MHC.OFFVIS ---
Vital Signs 05/13/25 12:47 Height 5 ft 1 in Weight 218 lb BMI 41.2 Intake Visit Reasons: IUD check Intake Note: here for IUD Zipper Ironer Required: No Information Interpreted: non-clinical & clinical Motor Home Electrical Foreman: Motor Home Electrical Foreman Present (kwaku) Accompanied by: Self / Same As Patient Allergies seafood Allergy (Severe, Verified 05/13/25 12:51) Anaphylaxis nitrofurantoin Adverse Reaction (Intermediate, Verified 05/13/25 12:51) Nausea and Vomiting Medication List - Last Reconciled 05/13/25 by Brooklynn Valenzuela LPN bisacodyl (Dulcolax (bisacodyl)) 10 mg VA DAILY PRN copper (ParaGard T 380A) intrauterine epinephrine 0.3 mg (0.3 mL) IM Q4H PRN ibuprofen 800 mg PO TID omeprazole 20 mg PO DAILY ondansetron 4 mg PO Q8H Do you need a note to return to daycare/school/sports/work: No HPI Comments Details: Patient is here today for a follow up IUD check. She has a history of ParaGard insertion with a missing string, confirmed proper position on recent ultrasound. Last exam had positive for BV, she was asymptomatic at the time and deferred treatment, now would like to have a treatment sent in due to her occasional odor. [facility] Medical History IUD strings lost IUD (intrauterine device) in place IUD surveillance Diarrhea GERD (gastroesophageal reflux disease) Pain of left thumb Annual physical exam Kidney stones Surgical History History of dilatation and curettage History of section Family History Father Diabetes mellitus Mother Asthma History of blood clots Mental health disorder Maternal Grandfather No problems noted. Maternal Grandmother Breast cancer Mental health disorder Paternal Grandfather Diabetes mellitus Paternal Grandmother No problems noted. Brother No problems noted. Brother No problems noted. Brother No problems noted. Brother No problems noted. Sister No problems noted. Sister No problems noted. Sister No problems noted. Sister No problems noted. Sister No problems noted. Sister No problems noted. Son No problems noted. Social History Housing: House Patient Tobacco Use Status: Never used Tobacco e-Cigarette/Vaping Use: Never Used Current occupational status: unemployed Cognitive needs: No Hearing needs: No Vision needs: Yes Female Reproductive History Menstrual Age of Menarche: 8 control method: progestin IUCD Total pregnancies: 3 Number of Living Children: 2 Ab spontaneous: 1 Review of Systems Const All systems reviewed & are unremarkable except as noted in HPI and below Physical Exam Vital Signs: BMI result Body Mass Index 41.2 Const General: cooperative, healthy appearing and no acute distress Orientation/consciousness: patient oriented x3 GI Inspection: Yes normal to inspection Palpation (GI): Soft to palpation and Other GI palpation findings present (Nontender) Rectal Exam - Female: visual inspection normal General: Yes bladder normal to palpation External Female Exam: normal appearance of the urethra Speculum Exam - Vagina: normal appearance of the vagina, normal palpation and normal vaginal discharge Speculum Exam - Cervix: normal appearance of the cervix and normal palpation Bimanual exam- vagina & uterus: normal bimanual exam, normal palpation, uterine size normal, bladder normal to palpation, normal palpation, uterine shape normal and non-tender Bimanual Exam- Adnexa, other: normal adnexae Neuro General: patient oriented x3 Assessment & Plan Assessment & Plan (1) IUD check up: Code(s): Z30.431 - Encounter for routine checking of intrauterine contraceptive device Category: Medical Plan: Reviewed ultrasound findings-IUD in proper position. Schedule annual exam for 06/15/2025. The patient expressed understanding and agreement with the plan of care. All of her questions and concerns were addressed to the best of my ability. (2) Vaginal odor: Code(s): N89.8 - Other specified noninflammatory disorders of vagina Plan Counseled: Advised to complete all medication. Possible GI upset-take medication with food. Avoid vinegar products-salad dressing, and pickles. NO ALCOHOL use during treatment and including up to 48 hours after medication is completed. The patient expressed understanding and agreement with the plan of care. All of her questions and concerns were addressed to the best of my ability. This note is constructed using voice recognition software. While every effort has been made to ensure accuracy, obstetrics scrub nurse errors may have been included. Medications: New metronidazole 500 mg PO Q12H 14 tabs 0RF 7 days Coding Level of Care Code Est Pt Level 3 (91343) Diagnoses IUD check up Z30.431 Vaginal odor N89.8
[2025-05-13 12:47] VITALS: BMI 41.2
--- OUTSIDE RECORDS SUMMARY | 2025-05-13 16:08 | XMS_ITS | Encounter Summary ---
Author Organization [facility] Address [address] [place] [id number] Phone Care Team Providers Care Fitness Supervisor Name Role Phone Lenora Jim MD Primary Care Provider Unavailabl e Encounter Details Date Type Department Care Team (Late st Contact Info) Description 10/28/2009 Documentation [facility] [place] [facility] [address] [place] [address] Family Medicine, Physician [address] [place] [address] Social History Tobacco Use Types Packs/Day Years [...] on filedocumented in this encounter Care Teams Fitness Supervisor Relationship Specialty Start Date End Date Lenora Jim MD PCP - General 01/18/17 documented as of this encounter
--- OUTSIDE RECORDS SUMMARY | 2025-05-13 16:08 | XMS_ITS | Encounter Summary ---
Author Organization [facility] Address [address] [place] [id number] Phone Care Team Providers Care Rehabilitation Inspector Name Role Phone Lenora Jim MD Primary Care Provider Unavailabl e Encounter Details Date Type Department Care Team (Late st Contact Info) Description 01/24/2017 Conversion Encounter [address] [address] Social History Tobacco Use Types Packs/Day Years [...] on filedocumented in this encounter Care Teams Rehabilitation Inspector Relationship Specialty Start Date End Date Lenora Jim MD PCP - General 01/18/17 documented as of this encounter
--- OUTSIDE RECORDS SUMMARY | 2025-05-13 16:08 | XMS_ITS | Clinical Summary ---
Author Organization [facility] Address [address] [place] [phone] Phone Care Team Providers Care Coroner Transport Technician Name Role Phone Lenora Jim MD Primary [...] complete this topic Procedures * Due to [place] state law, this organization might not be sharing sensitive test results. Procedure Name Priority Date/Time Associated Diagnosis Comments CHLAMYDIA AND GONORRHEA, AMPLIFIED Routine 08/13/2012 12:32 PM EST from Last 3 Months or Most Recently Relevant to Health Maintenance Results * Due to [place] state law, this organization might not be sharing sensitive test results. * Chlamydia and Gonorrhoea, Amplified (08/13/2012 12:32 PM EST) URINE GC AMP PROBE NEGATIVE [facility] Comment: NO NEISSERIA GONORRHOEAE RNA DETECTED IN THIS PATIENT'S SAMPLE. (REFERENCE RANGE/NORMAL VALUE: NOT DETECTED) NOTE: THIS TEST USES ARTIST AND REPERTOIRE MANAGER-MEDIATED AMPLIFICATION METHOD TO DETECT rRNA FROM C.TRACHOMATIS [...] OF INFECTION. URINE CHLAMYDIA AMP PROBE NEGATIVE [facility] Comment: NO CHLAMYDIA TRACHOMATIS RNA DETECTED IN THIS PATIENT'S SAMPLE. (REFERENCE RANGE/NORMAL VALUE: NOT DETECTED) 08/13/2012 12:3 2 PM EST Narrative [facility] - 08/13/2012 12:32 PM EST URINE CHLAMYDIA GC AMP PROBE us Lenora Jim MD LAB MICROBIOLOGY - GENERAL ORDER HEBER Final Result [facility] [address] [place] [address], from Last 3 Months or Most Recently Relevant to Health Maintenance Care Teams Coroner Transport Technician Relationship Specialty Start Date End Date Lenora Jim MD PCP - General 01/18/17
== END 2025-05-13 13:05 | disposition home or self-care (01) ==
LOC: HO.HWS 11:59
PROVIDERS: PCP Internal Medicine; Visit Provider Advanced Practice Midwife
DX: Z30.431 Encounter for routine checking of intrauterine contraceptive device (principal); N89.8 Other specified noninflammatory disorders of vagina
CPT/HCPCS: 99213

== ENCOUNTER → 2025-05-13 11:58 | Outpatient (BNVA) | payer OTHER, SELFPAY | PROVIDERS: PCP Internal Medicine; Visit Provider Advanced Practice Midwife | DX: Z30.431 Encounter for routine checking of intrauterine contraceptive device (principal); N89.8 Other specified noninflammatory disorders of vagina | CPT/HCPCS: 99212 ==